=== PATIENT | female | born 1970 | race Caucasian/White ===

== ENCOUNTER 2019-12-17 12:31 | Outpatient (CLI) | payer OTHER, SELFPAY ==
--- NOTE | ~2019-12-17 | XR_ITS ---
XR lumbar spine 2-3V DATE: 12/17/2019 13:19 INDICATION: Low back pain. No injury. TECHNIQUE: AP, lateral, coned lateral lumbosacral views COMPARISON: None FINDINGS: Normal alignment of the lumbar spine. There is mild degenerative spurring of the lumbar sp ine. No fracture or spondylolisthesis. The lumbar pedicles are intact. The sacroiliac joints are intact. IMPRESSION: Mild degenerative spurring Reviewed, dictated and finalized at location B. IMPRESSION: Mild degenerative spurring
== END 2019-12-17 12:32 | disposition home or self-care (01) ==
PROVIDERS: PCP Emergency Medicine
DX: M54.5 Low back pain (principal)
CPT/HCPCS: 72100

== ENCOUNTER 2019-12-31 17:47 | Emergency (ER) | payer OTHER, SELFPAY ==
--- NOTE | ~2019-12-31 | XR_ITS ---
XR ankle LT min 3V 12/31/2019 18:37 INDICATION: Left ankle pain after injury PROCEDURE: 4 views left ankle COMPARISON: No prior studies for comparison. FINDINGS: Fracture, dislocation or subluxation is not identified. There is a degenerative plantar terra caneal enthesophyte. Mild degenerative changes of the ankle. The soft tissues appear within normal li mits. No foreign bodies are identified. IMPRESSION: 1: NO ACUTE BONE OR JOINT ABNORMALITY IDENTIFIED. Reviewed, dictated and finalized at location A.
[2019-12-31 18:01] VITALS: BP 112/87; PULSE 95; RESP 18; TEMP 37.4; O2SAT 97
[2019-12-31 18:06] VITALS: O2SAT 97
[2019-12-31 18:15] VITALS: O2SAT 97
[2019-12-31 18:16] VITALS: BP 114/82; O2SAT 97
[2019-12-31 18:31] VITALS: BP 113/80; O2SAT 95
--- NOTE | 2019-12-31 18:45 | ED.LOWEXIN ---
HPI - Extremity Injury (Lower) General Chief Complaint: Extremity Injury, Lower Stated Complaint: left foot injury Time Seen by Provider: 12/31/19 18:07 Source: patient Mode of arrival: wheelchair Limitations: no limitations History of Present Illness HPI Narrative: This is a 49 year old female that presents to the ER for left ankle injury just prior to arrival. Reports she stepped into her shower and felt a pop in the ankle. Reports swelling and pain since. Reports decreased ROM due to pain. Denies hitting her head, loss of consciousness, other injuries, or numbness. Related Data Allergies Allergy/AdvReac Type Severity Reaction Status Date / Time No Known Allergies Allergy Verified 12/31/19 18:19 Review of Systems Review of Systems: Narrative: CONSTITUTIONAL: Denies fever MUSCULOSKELETAL: Reports joint pain, and myalgia. NEUROLOGIC: Denies numbness All systems reviewed & are unremarkable except as noted in HPI and below PMFSH Past Medical History Medical History (Updated 12/31/19 @ 18:50 by Katiana Castaneda PA-C) History of anxiety History of peripheral neuropathy Social History Social History Gender identity (if verbalized by the patient): Female Exam Narrative: Exam Narrative: GENERAL: Well-appearing, well-nourished, and in no acute distress. HEAD: Normocephalic, atraumatic. EYES: EOMI. EXTREMITIES: Normal range of motion. No edema or obvious deformity. Normal DP pulses. Normal sensation SKIN: Warm, dry, no rash. NEURO: No focal deficits. Alert and oriented x3. PSYCH: Normal mood and affect Course Vital Signs Vital signs: Vital Signs Temperature 99.4 F 12/31/19 18:01 Pulse Rate 95 12/31/19 18:01 Respiratory Rate 18 12/31/19 18:01 Blood Pressure 112/87 12/31/19 18:01 Pulse Oximetry 97 12/31/19 18:01 Temperature 99.4 F 12/31/19 18:01 Pulse Rate 95 12/31/19 18:01 Respiratory Rate 18 12/31/19 18:01 Blood Pressure 113/80 12/31/19 18:31 Pulse Oximetry 95 12/31/19 18:31 MDM - Extremity Injury (Lower) MDM Narrative Medical decision making narrative: Patient presents to the emergency department for left ankle pain after an injury today. Left ankle x-rays without acute changes. Patient was instructed on care of ankle sprain. She is to follow-up with primary care doctor. She is given warnings to return to the ER Imaging Data Radiologist's impression: ITS Impressions Ankle X-Ray 12/31/19 18:38 IMPRESSION: 1: NO ACUTE BONE OR JOINT ABNORMALITY IDENTIFIED. Critical Care Time Critical Care Time Critical Care Time: No Discharge Plan Discharge Clinical Impression: Acute left ankle pain Patient Disposition: Home, Self-Care Condition: Stable Instructions: Ankle Sprain (ED) Additional Instructions: Return to the emergency department if you experience fever, redness and swelling of your leg, or any other symptoms that are concerning to you Wear NANDINI wrap and use crutches. No weight on the affected leg until able to bear weight without pain. Ice and elevate extremity. Over the counter pain medication as needed Follow up with your doctor for further care. Follow-up/Referrals: Colt Rene MD [Primary Care Provider] - 1 Week
== END 2019-12-31 19:08 | disposition home or self-care (01) ==
PROVIDERS: Emergency Provider Emergency Medicine; PCP Emergency Medicine
DX: M25.572 Pain in left ankle and joints of left foot (principal); G62.9 Polyneuropathy, unspecified
CPT/HCPCS: 73610; 99283; A9270

== ENCOUNTER 2020-04-06 21:32 | Inpatient (IN) | payer OTHER, SELFPAY ==
--- NOTE | ~2020-04-06 | XR_ITS ---
EXAMINATION: XR abdomen/kub 1V INDICATION: Right ureteral stone TECHNIQUE: Supine views of the abdomen were obtained on 2 radiographs. COMPARISON: CT from today FINDINGS: A 3 mm density projecting lateral to the right L3 transverse process likely reflects the pr oximal ureteral stone identified on CT. No additional suspicious calcification is identified. The aimee g bases are clear. The bowel gas pattern is normal. IMPRESSION: 1. 3 mm calcification projecting in the expected location of the proximal right ureteral stone seen o n CT. Reviewed, dictated and finalized at location A. IMPRESSION: 1. 3 mm calcification projecting in the expected location of the proximal right ureteral stone seen on CT.
--- NOTE | ~2020-04-06 | XR_ITS ---
EXAMINATION: XR abdomen/kub 1V EXAM DATE: 04/09/2020 09:37 INDICATION: Evaluate for right ureteral stent position. TECHNIQUE: Frontal projection of the upper abdomen, frontal projection lower abdomen/pelvis for inter pretation. Comparison is made to prior examination from 04/06/2020. FINDINGS: Right-sided double-J ureteral stent is with proximal loop projecting over expected locatio n of right renal pelvis and distal loop over the bladder, expected position. There is scattered bowel gas. Nonobstructive bowel gas pattern. No suspicious calcifications identified., There are mild bony degenerative changes. Lung bases unremarkable. IMPRESSION: 1. Right ureteral stent overlying expected position. Reviewed, dictated and finalized at location G.
--- NOTE | ~2020-04-06 | XR_ITS ---
EXAMINATION: XR retrograde pyelo w/stent RT EXAM DATE: 04/07/2020 11:04 INDICATION: Stone extraction. TECHNIQUE: Fluoroscopy used during XR retrograde pyelo w/stent RT performed by Dr. Kaden Redd MD. The DAP for this procedure was 1.2 mGym2. Cine run(s) available for review. FINDINGS: The right ureter was cannulated, injected. Some mobile intraluminal filling defects probab ly gas bubbles. No ureteral stricture. A double-J ureteral stent was placed. Correlate with procedure note. IMPRESSION: Fluoroscopy used during XR retrograde pyelo w/stent RT. Reviewed, dictated and finalized at location A.
--- NOTE | ~2020-04-06 | CT_ITS ---
EXAMINATION: CT abdomen pelvis wo con DATE: 04/06/2020 22:07 INDICATION: Right flank pain TECHNIQUE: Computed tomography (CT) of the abdomen and pelvis was performed without intravenous contr ast. The dose-length product (DLP) was 746.75 mGy-cm. Automated exposure control and iterative recons truction technique were employed. COMPARISON: None FINDINGS: Calcified nodules of the left lower lobe and calcified left hilar nodules are consistent wi th old granulomatous disease. The heart size is normal. The liver is diffusely low in attenuation whe n compared with the spleen, consistent with hepatic steatosis. Punctate calcifications in an otherwis e normal spleen likely represent healed granulomatous disease. The pancreas, gallbladder, and adrenal glands are normal. There is a 3 mm stone of the proximal right ureter which causes mild hydronephros is. No stones are present in the kidneys, the left ureter, or the bladder. No pathologically enlarged abdominal or pelvic lymph nodes are identified. There is no free intraperitoneal gas or evidence of bowel obstruction. There is mild lumbar spondylosis. The appendix is normal. IMPRESSION: 1. 3 mm stone in the proximal right ureter causing mild right hydroureteronephrosis. Consider KUB for treatment planning purposes. Reviewed, dictated and finalized at location A. IMPRESSION: 1. 3 mm stone in the proximal right ureter causing mild right hydroureteronephr osis. Consider KUB for treatment planning purposes.
[2020-04-06 21:34] VITALS: BP 133/79; PULSE 100; RESP 20; TEMP 37.6; O2SAT 100
--- NOTE | 2020-04-06 21:42 | ED.FEVER ---
HPI - Fever General Chief Complaint: Fever Stated Complaint: INSOMNIA, BODY ACHES, FEVER Time Seen by Provider: 04/06/20 21:38 History of Present Illness HPI Narrative: History somewhat limited by poor historian. She reports not feeling well since having hemorrhoid surgery a few days ago. Symptoms include hip pain, back pain, rectal pain, nausea, weakness, fatigue, fever. She is concerned because she ran out of pain medication and thinks she may be haing a kidney stone flare . She reports that she has had many kidney stones in the past. Related Data Home Medications Medication Instructions Recorded Confirmed trazodone 04/06/20 gabapentin 600 mg PO BID 04/07/20 04/07/20 Allergies Allergy/AdvReac Type Severity Reaction Status Date / Time No Known Allergies Allergy Verified 04/06/20 21:46 Review of Systems Review of Systems: All systems reviewed & are unremarkable except as noted in HPI and below Constitutional: Constitutional: Reports fatigue and Reports fever(s) ENT: Denies sore throat Cardiovascular: Cardiovascular: Denies chest pain Respiratory: Respiratory: Reports cough Gastrointestinal: Gastrointestinal: Reports abdominal pain and Reports nausea Genitourinary: Genitourinary: Reports flank pain Musculoskeletal: Musculoskeletal: Reports back pain [facility] Past Medical History Medical History History of anxiety History of peripheral neuropathy Social History Social History Smoking status: Never smoker Alcohol intake: current Drinks per week: 2 Substance use: never Substance use type: does not use Gender identity (if verbalized by the patient): Female Spiritual care concerns: No Exam Const: General: no acute distress and alert Nutritional Appearance: obese Orientation/consciousness: patient oriented x3 HENMT: Head: normal to inspection Neck: Neck: normal visual inspection and no lymphadenopathy Chest: Chest palpation & inspection: no tenderness Resp: Effort & Inspection: normal respiratory effort Auscultation: clear to auscultation bilaterally, no rales, no rhonchi and no wheezes Cardio: Jugular venous distension: no JVD Rate: regular rate Rhythm: regular rhythm Heart sounds: no murmurs GI: Inspection: non-distended GI Palp: Yes Soft to palpation and No Tenderness to palpation present (GI) Skin: General skin exam: normal color Neuro: General: patient oriented x3, moves all extremities and CN's II-XI intact bilaterally Speech: normal speech Extrem: General: no edema Psych: Appearance: well kempt Affect: normal affect Course Vital Signs Vital signs: Vital Signs Temperature 37.6 C H 04/06/20 21:34 Pulse Rate 100 04/06/20 21:34 Respiratory Rate 20 04/06/20 21:34 Blood Pressure 133/79 04/06/20 21:34 Pulse Oximetry 100 04/06/20 21:34 Temperature 38.7 C H 04/07/20 02:02 Pulse Rate 101 H 04/07/20 01:49 Respiratory Rate 20 04/07/20 01:49 Blood Pressure 147/85 H 04/07/20 01:49 Pulse Oximetry 100 04/07/20 01:49 MDM - Fever MDM Narrative Medical decision making narrative: UA consistent with UTI. Small stone with hydro on CT. Case discussed with Dr. Redd. He will likely take her to the OR tomorrow. Medical Records Attestation: I reviewed the patient's medical records. Lab Data Attestation: I reviewed the patient's lab results. Result diagrams: 04/06/20 22:10 04/06/20 22:10 Labs: Lab Results 04/06/20 04/06/20 04/06/20 Range/Units 22:10 22:10 22:40 WBC 13.4 H (4.5-10.0) K/mm3 RBC 4.52 (4.2-5.4) M/mm3 Hgb 14.0 (12.0-15.0) g/dL Hct 41.5 (37.0-47.0) % MCV 91.8 (80-100) fl MCH 31.0 (26-34) pg MCHC 33.7 (32-36) g/dl RDW 13.4 (11.5-14.5) % Plt Count 311 (150-375) k/mm3 MPV 10.0 (7.4-10.4) fl Immature Gran % (Auto) 0.6 H (0-0.
[2020-04-06] MEDS: SODIUM CHLORIDE 0.9% IV 500 ML 999 ML IV CONT (22:11)
[2020-04-06 22:12] VITALS: BP 125/84; PULSE 94; RESP 20; O2SAT 97
[2020-04-06 22:21] LABS: Basophils Absolute Auto 0.1 K/mm3 (0.0-0.1); Basophils Percent Auto 0.6 % (0.2-1.2); Eosinophils Absolute Auto 0.1 K/mm3 (0-0.3); Eosinophils Percent Auto 0.7 % (0-4.4); Hematocrit 41.5 % (37.0-47.0); Immature Granulocyte Absolute 0.08 K/mm3 (0.00-0.031); Immature Granulocyte Percent A 0.6 % (0-0.5); Lymphocytes Absolute Auto 1.85 K/mm3 (0.9-3.2); Lymphocytes Percent Auto 13.8 % (18.3-44.2); Mean Corpuscular HGB Conc 33.7 g/dl (32-36); Mean Corpuscular Volume 91.8 fl (80-100); Monocytes Absolute Auto 0.9 K/mm3 (0.1-0.6); Monocytes Percent Auto 6.9 % (2.6-8.5); Neutrophils Absolute Auto 10.4 K/mm3 (1.3-6.7); Neutrophils Percent Auto 77.4 % (45.5-73.1); Platelet Count Result 311 k/mm3 (150-375); Red Blood Count 4.52 M/mm3 (4.2-5.4); Red Cell Distribution Width 13.4 % (11.5-14.5); White Blood Count 13.4 K/mm3 (4.5-10.0)
[2020-04-06 22:29] VITALS: BP 118/74; PULSE 88; RESP 20; O2SAT 100
[2020-04-06 22:31] LABS: Alanine Aminotransferase 20 U/L (4-35); Albumin Level 4.2 g/dL (3.5-5.1); Alkaline Phosphatase 110 U/L (38-126); Anion Gap 11.5 mmol/L (7-16); Aspartate Amino Transferase 21 U/L (14-36); Bilirubin,Total 0.8 mg/dL (0.2-1.3); Blood Urea Nitrogen 17 mg/dL (7-17); Carbon Dioxide 23 mmol/L (22-30); Chloride 109 mmol/L (98-107); Estimated CRCL calculation 67 ml/min; Estimated Glomerular Filt Rate 59; Glucose 123 mg/dL (65-105); Lipase 281 U/L (23-300); Potassium 3.5 mmol/L (3.4-5.0); Sodium 140 mmol/L (137-145)
[2020-04-06] MEDS: MORPHINE SULFATE 2 MG/ML INJ IV PUSH (22:54)
[2020-04-06] MEDS: SODIUM CHLORIDE 0.9% IV 1,000 ML 999 ML IV CONT (22:54)
[2020-04-06 22:58] LABS: Add Urine Microscopic? YES; Appearance Urine Cloudy (Clear); Bacteria Urine Trace /hpf; Bilirubin Urine Negative (Negative); Blood Urine 2+ (Negative); Color Urine Yellow (Yellow); Glucose Urine UA Negative (Negative); Ketones Urine Negative (Negative); Leukocyte Esterase Ur 2+ LEU/UL (Negative); Mucus Urine Few /lpf; Nitrate Urine Positive (Negative); Protein Urine 2+ mg/dL (Negative); Specific Grav Ur 1.023 (1.001-1.035); Squamous Epithelial Cell Urine Moderate /hpf (Few); Urobilinogen Urine Negative mg/dL (<2.0); WBC Urine 51-75 /hpf
[2020-04-07] VITALS (15 sets, daily range): BP systolic 93–147; BP diastolic 68–97; PULSE 72–105; RESP 12–21; TEMP 36.7–38.9; O2SAT 92–100; BMI 30.8
[2020-04-07] MEDS: MORPHINE SULFATE 4 MG/ML INJ IV PUSH ×4 (00:32→20:55)
--- NOTE | 2020-04-07 01:48 | ADMGEN ---
This patient, Lety Doshi, was admitted to Medical Room 343-01. Patient/family oriented to hospital policies and general routines including ID bracelet, bed and alarms, visiting hours, pain management, procedures, bathroom and other care routines, personal items, smoking policy, room service/diet, and visiting hours. Valuables list has been completed. Information on how to activate the Rapid Response Team has been discussed. Patient/Family are encouraged to report perceived risks to care and to ask questions if they do not understand what they are told or what they should do.
[2020-04-07] MEDS: LACTATED RINGERS 1,000 ML 125 ML IV CONT ×2 (02:22→13:58)
--- NOTE | 2020-04-07 02:32 | PM.IMHP ---
H&P: HPI History of Present Illness Chief complaint: Kidney stone and UTI Narrative: This is an obese female with known history of multiple recurring renal stones who presented to the hospital tonight with complaints of dysuria and right flank pain for the past few days. Associated symptoms includes fever and chills but no gross hematuria. The patient is known to have recently had hemorrhoid surgery about 2 weeks ago which she states is healing well. She denies any significant suprapubic pain tonight. The patient was found to be septic tonight in the ER with fever, tachycardia, and leukocytosis. CT abd/pelvis was obtained which demonstrated a 3 mm stone in the proximal right ureter causing mild right hydroureteronephrosis. ER provider has consulted Urology. The patient has been treated with antibiotics in the ER and we have been asked to admit her for further care. No other complaints. Review of Systems Review of Systems: All systems reviewed & are unremarkable except as noted in HPI and below PMFSH Past Medical History Medical History History of anxiety History of peripheral neuropathy Surgical History Surgical History (Updated 04/07/20 @ 05:18 by Werner Prajapati MD) History of ureter stent Social History Social History Smoking status: Never smoker Alcohol intake: current Drinks per week: 2 Substance use: never Substance use type: does not use Gender identity (if verbalized by the patient): Female Spiritual care concerns: No Comments Family medical history is reviewed and noncontributory. Meds Home Medications and Allergies Home Medications Medication Instructions Recorded Confirmed Type trazodone 150 mg PO HS 04/06/20 04/07/20 History gabapentin 600 mg PO BID 04/07/20 04/07/20 History Allergies Allergy/AdvReac Type Severity Reaction Status Date / Time No Known Allergies Allergy Verified 04/06/20 21:46 Vital Signs Vital Signs - 24 hr 04/06/20 21:34 04/06/20 22:12 04/06/20 22:29 Temperature 37.6 C H Pulse Rate 100 94 88 Respiratory Rate 20 20 20 Blood Pressure 133/79 125/84 118/74 Pulse Oximetry 100 97 100 04/07/20 01:20 04/07/20 01:49 04/07/20 02:02 Temperature 38.7 C H Pulse Rate 101 H Respiratory Rate 20 Blood Pressure 139/97 H 147/85 H Pulse Oximetry 100 Exam Const: General: cooperative, alert, awake, ill appearing, tired appearing and uncomfortable Nutritional Appearance: obese Orientation/consciousness: patient oriented x3 HENMT: Head: normal to inspection General nose exam: Normal external nose present Face and sinus: normal facial exam Mouth: Yes Normal oral and palatal mucosa present and Yes oropharynx normal Eyes: Pupils: Equal, round and reactive pupils present EOM: EOMs intact bilaterally Neck: Neck: supple and no JVD Thyroid: thyroid normal Lymphatic: lymphadenopathy not noted Resp: Effort & Inspection: normal respiratory effort Auscultation: clear to auscultation bilaterally Cardio: Rate: regular rate Rhythm: regular rhythm Heart sounds: no murmurs GI: Inspection: normal to inspection Auscultation: normal bowel sounds Back/Spine/Pelvis: Back: CVA tenderness (Right sided++ ) Skin: General skin exam: normal color and no rashes or lesions noted Neuro: General: patient oriented x3 Cranial nerves: Yes CN's II-XII intact bilaterally and Yes Equal, round and reactive pupils present Speech: normal speech Motor exam (neuro): 5/5 motor strength present throughout Sensory Exam: normal sensation Extrem: General: normal to inspection and no edema Psych: Mental Status: mental status grossly normal Affect: normal affect H&P: Results Labs Labs: Short CBC 04/06/20 Range/Units 22:10 WBC 13.4 H (4.5-10.0) K/mm3 Hgb 14.0 (12.0-15.0) g/dL Hct 41.5 (37.0-47.0) % Plt Count 311 (150-375) k/mm3
[2020-04-07 06:09] LABS: Basophils Absolute Auto 0.1 K/mm3 (0.0-0.1); Basophils Percent Auto 0.6 % (0.2-1.2); Eosinophils Percent Auto 0.2 % (0-4.4); Hematocrit 38.8 % (37.0-47.0); Hemoglobin 12.9 g/dL (12.0-15.0); Immature Granulocyte Absolute 0.07 K/mm3 (0.00-0.031); Immature Granulocyte Percent A 0.5 % (0-0.5); Lymphocytes Absolute Auto 1.47 K/mm3 (0.9-3.2); Lymphocytes Percent Auto 11.4 % (18.3-44.2); Mean Corpuscular HGB Conc 33.2 g/dl (32-36); Mean Corpuscular Hemoglobin 30.8 pg (26-34); Mean Corpuscular Volume 92.6 fl (80-100); Mean Platelet Volume 10.1 fl (7.4-10.4); Monocytes Absolute Auto 0.7 K/mm3 (0.1-0.6); Monocytes Percent Auto 5.8 % (2.6-8.5); Neutrophils Absolute Auto 10.5 K/mm3 (1.3-6.7); Neutrophils Percent Auto 81.5 % (45.5-73.1); Platelet Count Result 268 k/mm3 (150-375); Red Blood Count 4.19 M/mm3 (4.2-5.4); Red Cell Distribution Width 13.8 % (11.5-14.5); White Blood Count 12.9 K/mm3 (4.5-10.0)
[2020-04-07 06:25] LABS: Anion Gap 9.6 mmol/L (7-16); Blood Urea Nitrogen 13 mg/dL (7-17); Calcium 8.3 mg/dL (8.4-10.2); Carbon Dioxide 22 mmol/L (22-30); Chloride 110 mmol/L (98-107); Estimated CRCL calculation 65 ml/min; Estimated Glomerular Filt Rate 59; Glucose 135 mg/dL (65-105); Potassium 3.6 mmol/L (3.4-5.0); Sodium 138 mmol/L (137-145)
--- NOTE | 2020-04-07 07:32 | WPDURCON ---
Assessment and Plan Assessment and plan (1) Complicated UTI (urinary tract infection): Code(s): N39.0 - Urinary tract infection, site not specified Status: Acute (2) Ureteral stone with hydronephrosis: Code(s): N13.2 - Hydronephrosis with renal and ureteral calculous obstruction Status: Acute Assessment and Plan: Agree with ceftriaxone pending urine culture results Will planned cystoscopy with right ureteral stone extraction today. Urology Consult Note HPI Date Seen: 04/07/20 Requesting Physician: Elenita Santamaria PA-C Primary Care Provider: UNKNOWN,DOCTOR Consult Narrative Narrative: Lety Doshi is a 49 year old female with a history of multiple recurrence at renal and ureteral calculi, none of which have been cared for in [facility] or through our practice. She does report some several prior procedures including both endoscopic ureteral stone extractions and ESWL. She presents to the ER with persistent dysuria over the past several days and rather onset right flank pain. Imaging demonstrates a 3 mm partially obstructing right proximal ureteral stone. She denies fevers chills or gross hematuria. Review of Systems Cardiovascular: Cardiovascular: Denies chest pain, Denies lightheadedness, Denies palpitations and Denies dyspnea Respiratory: Respiratory: Denies dyspnea Gastrointestinal: Gastrointestinal: Denies diarrhea, Denies nausea and Denies vomiting Genitourinary: Genitourinary: Denies hematuria and Denies dysuria Endocrine: Endocrine: Denies palpitations PMFSH Past Medical History Medical History History of anxiety History of peripheral neuropathy Surgical History Surgical History History of ureter stent Social History Social History Smoking status: Never smoker Alcohol intake: current Drinks per week: 2 Substance use: never Substance use type: does not use Gender identity (if verbalized by the patient): Female Spiritual care concerns: No Meds Home Medications and Allergies Home Medications Medication Instructions Recorded Confirmed Type trazodone 150 mg PO HS 04/06/20 04/07/20 History gabapentin 600 mg PO BID 04/07/20 04/07/20 History Allergies Allergy/AdvReac Type Severity Reaction Status Date / Time No Known Allergies Allergy Verified 04/06/20 21:46 Vital Signs Vital Signs - 24 hr 04/06/20 21:34 04/06/20 22:12 04/06/20 22:29 Temperature 99.7 F H Pulse Rate 100 94 88 Respiratory Rate 20 20 20 Blood Pressure 133/79 125/84 118/74 Pulse Oximetry 100 97 100 04/07/20 01:20 04/07/20 01:49 04/07/20 02:02 Temperature 101.6 F H Pulse Rate 101 H Respiratory Rate 20 Blood Pressure 139/97 H 147/85 H Pulse Oximetry 100 04/07/20 05:15 Temperature 99.4 F Pulse Rate 105 H Respiratory Rate 19 Blood Pressure 109/77 Pulse Oximetry 97 Exam Const: General: no acute distress Resp: Effort & Inspection: normal respiratory effort GI: Inspection: non-distended GI Palp: No abdominal tenderness and No Guarding due to palpation present (GI) Auscultation: normal bowel sounds Results Labs CBC & Chem 7: 04/07/20 05:34 04/07/20 05:34 Labs: Short CBC 04/06/20 04/07/20 Range/Units 22:10 05:34 WBC 13.4 H 12.9 H (4.5-10.0) K/mm3 Hgb 14.0 12.9 (12.0-15.0) g/dL Hct 41.5 38.8 (37.0-47.0) % Plt Count 311 268 (150-375) k/mm3 BMP 04/06/20 04/07/20 22:10 05:34 Sodium 140 138 Potassium 3.5 3.6 Chloride 109 H 110 H Carbon Dioxide 23 22 BUN 17 13 Creatinine 1.00 1.00 Glucose 123 H 135 H Calcium 9.0 8.3 L Liver Function 04/06/20 Range/Units 22:10 Total Bilirubin 0.8 (0.2-1.3) mg/dL AST 21 (14-36) U/L ALT 20 (4-35) U/L Alkaline Phosphatase 110
[2020-04-07 08:29] LABS: Beta HCG Quantitative 3.16 mIU/ML
[2020-04-07] MEDS: LACTATED RINGERS 1,000 ML 30 ML IV CONT (09:45)
--- NOTE | 2020-04-07 10:24 | WPDANESEPPF ---
Anes - Initial Pre Proc Eval Procedure: Operation Date: 04/07/20 11:00 Proposed Procedures p CYSTOSCOPY,RIGHT URETEROSCOPY,STONE EXTRACTION - Kaden Redd MD Date/Time: 04/07/20 10:24 Surgeon: Elenita Santamaria PA-C Pre Op Diagnosis: Kidney stone and UTI Patient Data Age: 49 Gender: F Height: 5 ft 5 in Weight: 84 kg Last Vital Signs Temp 100.8 F H 04/07/20 09:52 Pulse 102 H 04/07/20 09:52 Resp 18 04/07/20 09:52 BP 134/78 04/07/20 09:52 Pulse Ox 99 04/07/20 09:52 Allergies Allergy/AdvReac Type Severity Reaction Status Date / Time No Known Allergies Allergy Verified 04/07/20 09:51 Home Medications Medication Instructions Recorded Confirmed Type trazodone 150 mg PO HS 04/06/20 04/07/20 History gabapentin 600 mg PO BID 04/07/20 04/07/20 History Laboratory Tests 04/06/20 04/06/20 04/06/20 22:10 22:10 22:40 WBC 13.4 K/mm3 H K/mm3 (4.5-10.0) RBC 4.52 M/mm3 M/mm3 (4.2-5.4) Hgb 14.0 g/dL g/dL (12.0-15.0) Hct 41.5 % % (37.0-47.0) MCV 91.8 fl fl (80-100) MCH 31.0 pg pg (26-34) MCHC 33.7 g/dl g/dl (32-36) RDW 13.4 % % (11.5-14.5) Plt Count 311 k/mm3 k/mm3 (150-375) MPV 10.0 fl fl (7.4-10.4) Immature Gran % (Auto) 0.6 % H % (0-0.5) Neut % (Auto) 77.4 % H % (45.5-73.1) Lymph % (Auto) 13.8 % L % (18.3-44.2) [place] % (Auto) 6.9 % % (2.6-8.5) Eos % (Auto) 0.7 % % (0-4.4) Baso % (Auto) 0.6 % % (0.2-1.2) Lymph # (Auto) 1.85 K/mm3 K/mm3 (0.9-3.2) [place] # (Auto) 0.9 K/mm3 H K/mm3 (0.1-0.6) Eos # (Auto) 0.1 K/mm3 K/mm3 (0-0.3) Baso # (Auto) 0.1 K/mm3 K/mm3 (0.0-0.1) Abs Immat Gran (auto) 0.08 K/mm3 H K/mm3 (0.00-0.031) Absolute Neuts (auto) 10.4 K/mm3 H K/mm3 (1.3-6.7) Absolute Nucleated RBC 0.0 K/mm3 K/mm3 (0.0-0.012) Nucleated RBC % 0.0 % % (0.0-0.2) Sodium 140 mmol/L mmol/L (137-145) Potassium 3.5 mmol/L mmol/L (3.4-5.0) Chloride 109 mmol/L H mmol/L (98-107) Carbon Dioxide 23 mmol/L mmol/L (22-30) Anion Gap 11.5 mmol/L mmol/L (7-16) BUN 17 mg/dL mg/dL (7-17) Creatinine 1.00 mg/dL mg/dL (0.7-1.0) Estim Creat Clear Calc 67 ml/min ml/min Estimated GFR 59 (59 - ) Glucose 123 mg/dL H mg/dL (65-105) Calcium 9.0 mg/dL mg/dL (8.4-10.2) Total Bilirubin 0.8 mg/dL mg/dL (0.2-1.3) AST 21 U/L U/L (14-36) ALT 20 U/L U/L (4-35) Alkaline Phosphatase 110 U/L U/L (38-126) Total Protein 8.0 g/dL g/dL (6.3-8.2) Albumin 4.2 g/dL g/dL (3.5-5.1) Lipase 281 U/L U/L (23-300) Beta HCG, Quant Urine Color Yellow (Yellow) Urine Appearance Cloudy H (Clear) Urine pH 5.0 (5.0-9.0) Ur Specific [place] 1.023 (1.001-1.035) Urine Protein 2+ mg/dL H mg/dL (Negative) Urine Glucose (UA) Negative mg/dL mg/dL (Negative) Urine Ketones Negative mg/dL mg/dL (Negative) Ur Blood (Man) 2+ H (Negative) Urine Nitrate Positive H (Negative) Urine Bilirubin Negative (Negative) Urine Urobilinogen Negative mg/dL mg/dL (<2.0) Leukocyte Esterase Rfl 2+ TAMIKA/UL H TAMIKA/UL (Negative) Urine RBC 6-10 /hpf H /hpf (0-2) Urine WBC 51-75 /hpf H /hpf Ur Squamous Epith Cells Moderate /hpf H /hpf (Few) Urine Bacteria Trace /hpf /hpf Urine Mucus Few /lpf H /lpf 04/07/20 04/07/20 04/07/20 05:34 05:34 05:34 WBC 12.9 K/mm3 H K/mm3 (4.5-10.0) RBC 4.19 M/mm3 L M/mm3 (4.2-5.4) Hgb 12.9 g/dL g/dL (12.0-15.0) Hct 38.
[2020-04-07] MEDS: KETOROLAC 30 MG/ML VIAL (*BKC) IV PUSH (10:51)
[2020-04-07] MEDS: LIDOCAINE HCL 2% GEL UROJET 10 ML PKG MUCOUS MEM (10:58)
--- NOTE | 2020-04-07 11:09 | P.OP_ITS ---
Procedure Note - Detailed Date of procedure: 04/07/20 Pre-op diagnosis: Kidney stone and UTI Post-op diagnosis: same Procedure performed: 1. Cystoscopy, right ureteroscopy with stone extraction. 2. Right retrograde pyelogram. 3. Right ureteral stent placement. Description of procedure: The patient was brought to the operative suite where she is prepped and draped in a routine sterile fashion while in the dorsal lithotomy position after the uneventful induction of a general LMA anesthetic. A 19F rigid cystoscope was placed in the bladder. The patient had no evidence of urethral stricture or bladder neck contracture. The bladder mucosa was endoscopically normal without hyperemia or neoplasm. There was a single, orthotopic ureteral orifice bilaterally. A 0.035 glidewire was advanced into the right renal pelvis under fluoroscopy. The distal ureter was dilated with an 8F/10F ureteral dilator. Ureteroscopy was undertaken with a short tapered semi- rigid ureteroscope and I was able to identify the proximal ureeteral stone and extract it using a 1.9F Escape, disposable stone basket. Due to the extent of this manipulation and the possible presence of an ongoing UTI I did place a 4.8F double-J ureteral stent. The proximal coil of the stent was confirmed to be in the renal pelvis and the distal coil in the bladder. The patient's bladder was emptied and she was taken to the recovery room having tolerated this procedure well. Anesthesia: GLMA Surgeon: Kaden Redd MD General Warehouse Associate: None Estimated blood loss (mL): 0 Drains: Yes (4.8F right ureteral stent) Packing: No Pathology: yes Complications: No immediate complications Condition: stable Disposition: PACU
--- NOTE | 2020-04-07 16:24 | PM.IMPN ---
Progress Note: A&P Assessment and Plan (1) Complicated UTI (urinary tract infection): Code(s): N39.0 - Urinary tract infection, site not specified Status: Acute Assessment and Plan: ------ urine culture still pending but UA suspicious for UTI. Will continue ceftriaxone. Patient has been febrile but no blood cultures were drawn. Although she has already had 1 dose of antibiotics, we will redraw this. (2) Sepsis: Qualifiers: Sepsis type: sepsis due to unspecified organism Sepsis acute organ dysfunction status: without acute organ dysfunction Qualified Code(s): A41.9 - Sepsis, unspecified organism Code(s): A41.9 - Sepsis, unspecified organism Status: Acute Assessment and Plan: ------ Patient had leukocytosis and tachycardia on admission. No blood cultures were drawn as stated above. Will continue ceftriaxone and await urinary cultures. Source appears to be urinary. (3) Ureteral stone with hydronephrosis: Code(s): N13.2 - Hydronephrosis with renal and ureteral calculous obstruction Status: Acute Assessment and Plan: ----- Patient had a stone extraction today. Will monitor overnight and see how she does. (4) Leukocytosis: Qualifiers: Leukocytosis type: unspecified Qualified Code(s): D72.829 - Elevated white blood cell count, unspecified Code(s): D72.829 - Elevated white blood cell count, unspecified Status: Acute Assessment and Plan: -----Secondary to UTI. Monitor CBCd. Time Spent With Patient Time with patient: 25 - 35 minutes Subjective Date/time seen: 04/07/20 16:24 Interval history: Pt is a 49-year-old female here for kidney stone and UTI. Patient was seen today and states she is feeling much better. She was confused last night but overall doing better. She has been eating and drinking and urinating without issue. She does have a little blood after her procedure but nothing significant. She still having flank pain. She denies chest pain, shortness of breath, leg swelling, nausea or vomiting. Review of Systems Review of Systems: All systems reviewed & are unremarkable except as noted in HPI and below Exam Narrative: Exam Narrative: General: Well developed well nourished patient in NAD HEENT: normocephalic, poor dentition Neck: supple Neuro: Alert and oriented x4 CV:RRR Resp:CTA Abd: Soft, non distended. No pain to palpation. Positive bowel sounds. CVA tenderness bilaterally Extremities: No swelling, erythema, or pain to palpation. Objective Data Vital Signs Vital Signs: Vital Signs - 24 hr 04/06/20 21:34 04/06/20 22:12 04/06/20 22:29 Temperature 99.7 F H Pulse Rate 100 94 88 Respiratory Rate 20 20 20 Blood Pressure 133/79 125/84 118/74 Pulse Oximetry 100 97 100 04/07/20 01:20 04/07/20 01:49 04/07/20 02:02 Temperature 101.6 F H Pulse Rate 101 H Respiratory Rate 20 Blood Pressure 139/97 H 147/85 H Pulse Oximetry 100 04/07/20 05:15 04/07/20 08:35 04/07/20 09:52 Temperature 99.4 F 98.6 F 100.8 F H Pulse Rate 105 H 72 102 H Respiratory Rate 19 16 18 Blood Pressure 109/77 142/68 H 134/78 Pulse Oximetry 97 97 99 04/07/20 11:06 04/07/20 11:20 04/07/20 11:35 Temperature 102.0 F H Pulse Rate 101 H 104 H 98 Respiratory Rate 18 21 H 18 Blood Pressure 125/87 126/84 136/91 H Pulse Oximetry 98 99 99 04/07/20 11:50 04/07/20 12:05 04/07/20 12:20 Temperature 99.3 F Pulse Rate 96 87 76 Respiratory Rate 18 12 14 Blood Pressure 135/92 H 120/77 93/72 L Pulse Oximetry 93 92 93 Intake/Output Intake/Output: Intake & Output 04/04/20 04/05/20 04/06/20 04/07/20 23:59 23:59 23:59 23:59 Intake Total 1500 1500 Output Total 400 Balance 1500 1100 Meds/Results Medications: Active Medications Generic Name Dose Route Start Last Admin Trade Name Freq PRN Reason Stop Dose Admin Lactated Ringer's 1,000 mls @ 125 mls/hr 04/07/20 00:
[2020-04-07] MEDS: LACTULOSE 20 GM/30 ML UDC 10 GM PO (17:26)
[2020-04-07] MEDS: LORATADINE 10 MG TABLET PO (17:28)
[2020-04-07] MEDS: hydrOXYzine HCL 25 MG TABLET PO (17:28)
[2020-04-07] MEDS: DICYCLOMINE HCL 10 MG CAPSULE 20 MG PO (17:29)
[2020-04-07] MEDS: buPROPion HCL XL (24 HR) 150 MG TABCR PO (21:02)
[2020-04-07] MEDS: traZODone HCL 50 MG TABLET 150 MG PO (21:06)
[2020-04-07] MEDS: GABAPENTIN 300 MG CAPSULE 600 MG PO (21:13)
[2020-04-08] MEDS: MORPHINE SULFATE 4 MG/ML INJ IV PUSH ×4 (05:21→22:25)
[2020-04-08 05:52] VITALS: BP 139/87; PULSE 64; RESP 15; TEMP 36.1; O2SAT 100
[2020-04-08 06:25] LABS: Hematocrit 37.7 % (37.0-47.0); Hemoglobin 12.5 g/dL (12.0-15.0); Mean Corpuscular HGB Conc 33.2 g/dl (32-36); Mean Corpuscular Hemoglobin 30.7 pg (26-34); Mean Corpuscular Volume 92.6 fl (80-100); Mean Platelet Volume 10.2 fl (7.4-10.4); Platelet Count Result 236 k/mm3 (150-375); Red Blood Count 4.07 M/mm3 (4.2-5.4); Red Cell Distribution Width 13.7 % (11.5-14.5)
[2020-04-08] MEDS: LACTULOSE 20 GM/30 ML UDC 10 GM PO ×2 (06:44→16:32)
[2020-04-08 06:46] LABS: Alanine Aminotransferase 17 U/L (4-35); Albumin Level 3.6 g/dL (3.5-5.1); Alkaline Phosphatase 85 U/L (38-126); Anion Gap 9.4 mmol/L (7-16); Aspartate Amino Transferase 18 U/L (14-36); Bilirubin,Total 0.4 mg/dL (0.2-1.3); Blood Urea Nitrogen 18 mg/dL (7-17); Carbon Dioxide 25 mmol/L (22-30); Chloride 110 mmol/L (98-107); Estimated CRCL calculation 80 ml/min; Estimated Glomerular Filt Rate > 60; Glucose 124 mg/dL (65-105); Magnesium 2.3 mg/dL (1.6-2.3); Potassium 4.4 mmol/L (3.4-5.0); Sodium 140 mmol/L (137-145)
--- NOTE | 2020-04-08 07:45 | WPDUROPN2 ---
Progress Note: A&P Assessment and Plan (1) Complicated UTI (urinary tract infection): Code(s): N39.0 - Urinary tract infection, site not specified Status: Acute (2) Ureteral stone with hydronephrosis: Code(s): N13.2 - Hydronephrosis with renal and ureteral calculous obstruction Status: Acute Assessment and Plan: Culture-directed abx. when completed. Needs stent out in 7-10 days. No other intervention from our standpoint. Subjective Subjective Date/Time Seen: 04/08/20 07:45 Multiple somatic complaints - nothing seems to be related to stone extraction/stent placement yesterday. Urine culture: GNR / Blood culture: NG to date Review of Systems Cardiovascular: Cardiovascular: Denies chest pain, Denies lightheadedness, Denies palpitations and Denies dyspnea Respiratory: Respiratory: Denies dyspnea Gastrointestinal: Gastrointestinal: Denies diarrhea, Denies nausea and Denies vomiting Genitourinary: Genitourinary: Denies hematuria and Denies dysuria Endocrine: Endocrine: Denies palpitations Exam Const: General: no acute distress Resp: Effort & Inspection: normal respiratory effort GI: Inspection: non-distended GI Palp: No abdominal tenderness and No Guarding due to palpation present (GI) Auscultation: normal bowel sounds Objective Data Vital Signs Vital Signs: Vital Signs - 24 hr 04/07/20 08:35 04/07/20 09:52 04/07/20 11:06 Temperature 98.6 F 100.8 F H 102.0 F H Pulse Rate 72 102 H 101 H Respiratory Rate 16 18 18 Blood Pressure 142/68 H 134/78 125/87 Pulse Oximetry 97 99 98 04/07/20 11:20 04/07/20 11:35 04/07/20 11:50 Temperature 99.3 F Pulse Rate 104 H 98 96 Respiratory Rate 21 H 18 18 Blood Pressure 126/84 136/91 H 135/92 H Pulse Oximetry 99 99 93 04/07/20 12:05 04/07/20 12:20 04/07/20 16:35 Temperature 98.2 F Pulse Rate 87 76 81 Respiratory Rate 12 14 14 Blood Pressure 120/77 93/72 L 130/87 Pulse Oximetry 92 93 98 04/07/20 19:46 04/07/20 20:00 04/08/20 05:52 Temperature 98.1 F 97 F L Pulse Rate 72 72 64 Respiratory Rate 16 16 15 Blood Pressure 128/70 139/87 Pulse Oximetry 100 100 100 Intake/Output Intake/Output: Intake & Output 04/05/20 04/06/20 04/07/20 04/08/20 23:59 23:59 23:59 23:59 Intake Total 1500 2330 300 Output Total 1000 1000 Balance 1500 1330 -700 Meds/Results Medications: Active Medications Generic Name Dose Route Start Last Admin Trade Name Freq PRN Reason Stop Dose Admin Acetaminophen 650 mg 04/07/20 16:28 Tylenol Tablet PO Q4H PRN pain 1-3 Hydrocodone Bitart/Acetaminophen 1 tab 04/07/20 16:28 04/08/20 01:00 [place] 5-325 Mg PO 1 tab Q6H PRN Administration Pain Rated 4-6 Bupropion HCl 150 mg 04/07/20 21:00 04/07/20 21:02 Wellbutrin Xl (24 Hr) PO 150 mg HS EDDIE Administration Dicyclomine HCl 20 mg 04/07/20 17:00 04/07/20 17:29 Bentyl Capsule PO 20 mg TID EDDIE Administration Gabapentin 600 mg 04/08/20 09:00 Neurontin PO BID EDDIE Hydroxyzine HCl 25 mg 04/07/20 17:00 04/07/20 17:28 Atarax Tablet PO 25 mg TID EDDIE Administration Ceftriaxone Sodium/Dextrose 1 gm in 50 mls @ 100 mls/hr 04/07/20 21:00 04/07/20 22:00 Rocephin 1 Gm/D5w 50 Ml IVPB Infused Q24H EDDIE Infusion Lactulose 10 gm 04/07/20 17:00 04/08/20 06:44 Lactulose PO 05/07/20 17:01 10 gm BID EDDIE Administration Loratadine 10 mg 04/07/20 09:00 04/07/20 17:28 Claritin PO 10 mg DAILY EDDIE Administration Morphine Sulfate 4 mg 04/07/20 00:49 04/08/20 05:21 Morphine Sulfate Inj IV PUSH 4 mg Q2H PRN Administration Pain Rated 7-10 Trazodone HCl 150 mg 04/07/20 18:32 04/07/20 21:06 Desyrel PO 150 mg HS PRN Administration Insomnia Radiology Results: ITS Impressions Abdomen/Pelvis CT 07/22/20 22:10 IMPRESSION: 1. 3 mm stone in the proximal right ureter causing mild right hydroureteronephrosis. Consi
[2020-04-08] MEDS: LORATADINE 10 MG TABLET PO (08:04)
[2020-04-08] MEDS: hydrOXYzine HCL 25 MG TABLET PO ×3 (08:04→16:32)
[2020-04-08] MEDS: GABAPENTIN 300 MG CAPSULE 600 MG PO ×2 (08:05→16:32)
[2020-04-08] MEDS: DICYCLOMINE HCL 10 MG CAPSULE 20 MG PO ×3 (08:05→16:31)
--- NOTE | 2020-04-08 12:49 | PM.IMPN ---
Progress Note: A&P Assessment and Plan (1) Complicated UTI (urinary tract infection): Code(s): N39.0 - Urinary tract infection, site not specified Status: Acute Assessment and Plan: ------UA and culture + for kelbsiela and sensitive to ceftriaxone. Pt is still in a lot of pain and does not think she can discharge. She has been afebrile for 24 hours so far. Blood cultures pending. (2) Sepsis: Qualifiers: Sepsis type: sepsis due to unspecified organism Sepsis acute organ dysfunction status: without acute organ dysfunction Qualified Code(s): A41.9 - Sepsis, unspecified organism Code(s): A41.9 - Sepsis, unspecified organism Status: Acute Assessment and Plan: ------ Patient had leukocytosis and tachycardia on admission. No blood cultures were drawn as stated above. Will continue ceftriaxone and await urinary cultures. Source appears to be urinary. (3) Ureteral stone with hydronephrosis: Code(s): N13.2 - Hydronephrosis with renal and ureteral calculous obstruction Status: Acute Assessment and Plan: ----- stone extracted and stent placed. (4) Leukocytosis: Qualifiers: Leukocytosis type: unspecified Qualified Code(s): D72.829 - Elevated white blood cell count, unspecified Code(s): D72.829 - Elevated white blood cell count, unspecified Status: Acute Assessment and Plan: -----resolved. Secondary to UTI. Monitor CBCd. Additional Plan Subjective Date/time seen: 04/08/20 12:49 Interval history: Pt is a 49-year-old female here for kidney stone and UTI. Patient was seen today and is still having uncontrolled pain. She says the pain is in her right flank and is constant. She is having mild burning with urination. She does not think she can go home because of this pain. Her pain medication has been increased and this is helped some. She does not have much of an appetitie and she doesn't know why. She also mentions she is going on vacation and won't be back until the . No CP or SOB. Exam Narrative: Exam Narrative: General: Well developed well nourished patient in NAD HEENT: normocephalic, edentulous on the top teeth Neck: supple Neuro: Alert and oriented x4 CV:RRR Resp:CTA Abd: Soft, non distended. pain to palpation to the RLQ. Positive bowel sounds. No CVA tenderness Extremities: No swelling, erythema, or pain to palpation. Objective Data Vital Signs Vital Signs: Vital Signs - 24 hr 04/07/20 16:35 04/07/20 19:46 04/07/20 20:00 Temperature 98.2 F 98.1 F Pulse Rate 81 72 72 Respiratory Rate 14 16 16 Blood Pressure 130/87 128/70 Pulse Oximetry 98 100 100 04/08/20 05:52 Temperature 97 F L Pulse Rate 64 Respiratory Rate 15 Blood Pressure 139/87 Pulse Oximetry 100 Intake/Output Intake/Output: Intake & Output 04/05/20 04/06/20 04/07/20 04/08/20 23:59 23:59 23:59 23:59 Intake Total 1500 2330 780 Output Total 1000 1000 Balance 1500 1330 -220 Meds/Results Medications: Active Medications Generic Name Dose Route Start Last Admin Trade Name Freq PRN Reason Stop Dose Admin Acetaminophen 650 mg 04/07/20 16:28 Tylenol Tablet PO Q4H PRN pain 1-3 Hydrocodone Bitart/Acetaminophen 1 tab 04/08/20 08:08 04/08/20 09:33 [place] 7.5-325 Mg PO 1 tab Q6H PRN Administration Pain Rated 4-6 Bupropion HCl 150 mg 04/07/20 21:00 04/07/20 21:02 Wellbutrin Xl (24 Hr) PO 150 mg HS EDDIE Administration Dicyclomine HCl 20 mg 04/07/20 17:00 04/08/20 08:05 Bentyl Capsule PO 20 mg TID EDDIE Administration Gabapentin 600 mg 04/08/20 09:00 04/08/20 08:05 Neurontin PO 600 mg BID EDDIE Administration Hydroxyzine HCl 25 mg 04/07/20 17:00 04/08/20 08:04 Atarax Tablet PO 25 mg TID EDDIE Administration Ceftriaxone Sodium/Dextrose 1 gm in 50 mls @ 100 mls/hr 04/07/20 21:00 04/07/20 22:00 Rocephin 1 Gm/D5w 50 Ml IVPB In
--- NOTE | 2020-04-08 19:04 | WPDANESPN ---
Anes - Prog Note Post-Op Date/Time: 04/08/20 19:04 Cardiovascular status: normal Respiratory status: normal Airway patency: baseline Mental status: baseline Post-Op hydration status: normal Vital Signs: Last Vital Signs Temp 97 F L 04/08/20 05:52 Pulse 64 04/08/20 05:52 Resp 15 04/08/20 05:52 BP 139/87 04/08/20 05:52 Pulse Ox 100 04/08/20 05:52 I/O: Intake & Output 04/08/20 04/08/20 04/08/20 07:59 15:59 23:59 Intake Total 300 840 910 Output Total 1000 375 Balance -700 840 535 Laboratory Tests 04/08/20 06:02 04/08/20 06:02 04/08/20 04/08/20 06:02 06:02 WBC 10.0 RBC 4.07 L Hgb 12.5 Hct 37.7 MCV 92.6 MCH 30.7 MCHC 33.2 RDW 13.7 Plt Count 236 MPV 10.2 Sodium 140 Potassium 4.4 Chloride 110 H Carbon Dioxide 25 Anion Gap 9.4 BUN 18 H Creatinine 0.80 Estim Creat Clear Calc 80 Estimated GFR > 60 Glucose 124 H Calcium 9.0 Magnesium 2.3 Total Bilirubin 0.4 Direct Bilirubin 0.0 AST 18 ALT 17 Alkaline Phosphatase 85 Total Protein 7.0 Albumin 3.6 Microbiology 04/06/20 22:40 Urine Clean Catch Urine Culture - Final Klebsiella pnemoniae Patient Feedback: Patient satisfied with anesthetic care.
[2020-04-08 22:20] VITALS: BP 144/97; PULSE 74; RESP 16; TEMP 37.2; O2SAT 100
[2020-04-08] MEDS: buPROPion HCL XL (24 HR) 150 MG TABCR PO (22:25)
[2020-04-08] MEDS: traZODone HCL 50 MG TABLET 150 MG PO (22:25)
[2020-04-08 22:30] VITALS: PULSE 74; RESP 16; O2SAT 100
[2020-04-09] MEDS: MORPHINE SULFATE 4 MG/ML INJ IV PUSH ×3 (05:13→21:41)
[2020-04-09 05:17] VITALS: BP 152/98; PULSE 77; RESP 16; TEMP 36.5; O2SAT 99
[2020-04-09 06:35] LABS: Hemoglobin 12.6 g/dL (12.0-15.0); Mean Corpuscular HGB Conc 32.3 g/dl (32-36); Mean Corpuscular Hemoglobin 29.9 pg (26-34); Mean Corpuscular Volume 92.6 fl (80-100); Platelet Count Result 324 k/mm3 (150-375); Red Blood Count 4.21 M/mm3 (4.2-5.4); Red Cell Distribution Width 13.8 % (11.5-14.5); White Blood Count 8.1 K/mm3 (4.5-10.0)
[2020-04-09 06:46] LABS: Anion Gap 10.2 mmol/L (7-16); Blood Urea Nitrogen 17 mg/dL (7-17); Calcium 8.8 mg/dL (8.4-10.2); Carbon Dioxide 28 mmol/L (22-30); Chloride 104 mmol/L (98-107); Estimated CRCL calculation 65 ml/min; Estimated Glomerular Filt Rate 59; Glucose 105 mg/dL (65-105); Potassium 3.2 mmol/L (3.4-5.0); Sodium 139 mmol/L (137-145)
[2020-04-09 07:11] LABS: Hemoglobin A1C 5.3 % (<5.7)
[2020-04-09 08:00] VITALS: PULSE 77; RESP 16; O2SAT 99
[2020-04-09] MEDS: POTASSIUM CHLORIDE 20 MEQ TABLET 40 MEQ PO (08:55)
[2020-04-09] MEDS: LACTULOSE 20 GM/30 ML UDC 10 GM PO (08:59)
[2020-04-09] MEDS: DICYCLOMINE HCL 10 MG CAPSULE 20 MG PO ×3 (09:03→16:49)
[2020-04-09] MEDS: hydrOXYzine HCL 25 MG TABLET PO ×3 (09:03→16:48)
[2020-04-09] MEDS: GABAPENTIN 300 MG CAPSULE 600 MG PO ×2 (09:03→16:48)
[2020-04-09] MEDS: LORATADINE 10 MG TABLET PO (09:06)
--- NOTE | 2020-04-09 09:19 | WPDUROPN2 ---
Progress Note: A&P Assessment and Plan (1) Complicated UTI (urinary tract infection): Code(s): N39.0 - Urinary tract infection, site not specified Status: Acute (2) Ureteral stone with hydronephrosis: Code(s): N13.2 - Hydronephrosis with renal and ureteral calculous obstruction Status: Acute Assessment and Plan: Is s/p cysto, R URS with stone extraction and R stent for 3 mm R ureteral stone with UTI - urine cx growing Kleb; on cx-appropriate abx. Convert to PO abx at time of discharge - having ongoing RLQ/R lower back pain along trajectory of the stent uncontrolled with morphine and norco. Will add toradol and pyridium now. Discussed with hospitalist option to add flomax and oxybutynin IR PRN and possible conversion to percocet if pain persists. Monitor for constipation - will get KUB to ensure appropriate stent position. - once stent pain is controlled, OK for d/c from perspective and will see [facility] back for stent removal Subjective Subjective Date/Time Seen: 04/09/20 09:19 Having issues with right groin, right lower back and right hip pain. Is afebrile. Doesn't feel morphine and norco are helping Review of Systems Constitutional: Constitutional: Reports as per HPI Eyes: Eyes: Reports as per HPI Cardiovascular: Cardiovascular: Reports no additional cardiovascular complaints Gastrointestinal: Gastrointestinal: Reports abdominal pain Genitourinary: Genitourinary: Reports pelvic pain Exam Const: General: healthy appearing (states she is in pain ) HENMT: Head: normal to inspection Ears: hearing grossly normal bilaterally Eyes: General: appearance normal, both eyes and all related structures Neck: Neck: normal visual inspection Resp: Effort & Inspection: normal respiratory effort GI: GI Palp: Yes abdominal tenderness (RLQ/R groin) Psych: Appearance: grossly normal Mental Status: mental status grossly normal Objective Data Vital Signs Vital Signs: Vital Signs - 24 hr 04/08/20 22:20 04/08/20 22:30 04/09/20 05:17 Temperature 37.2 C 36.5 C Pulse Rate 74 74 77 Respiratory Rate 16 16 16 Blood Pressure 144/97 H 152/98 H Pulse Oximetry 100 100 99 Intake/Output Intake/Output: Intake & Output 04/06/20 04/07/20 04/08/20 04/09/20 23:59 23:59 23:59 23:59 Intake Total 1500 2330 2100 672 Output Total 1000 1375 1000 Balance 1500 1330 725 -328 Meds/Results Medications: Active Medications Generic Name Dose Route Start Last Admin Trade Name Freq PRN Reason Stop Dose Admin Acetaminophen 650 mg 04/07/20 16:28 Tylenol Tablet PO Q4H PRN pain 1-3 Hydrocodone Bitart/Acetaminophen 1 tab 04/08/20 08:08 04/09/20 00:12 [place] 7.5-325 Mg PO 1 tab Q6H PRN Administration Pain Rated 4-6 Bupropion HCl 150 mg 04/07/20 21:00 04/08/20 22:25 Wellbutrin Xl (24 Hr) PO 150 mg HS EDDIE Administration Dicyclomine HCl 20 mg 04/07/20 17:00 04/09/20 09:03 Bentyl Capsule PO 20 mg TID EDDIE Administration Gabapentin 600 mg 04/08/20 09:00 04/09/20 09:03 Neurontin PO 600 mg BID EDDIE Administration Hydroxyzine HCl 25 mg 04/07/20 17:00 04/09/20 09:03 Atarax Tablet PO 25 mg TID EDDIE Administration Ceftriaxone Sodium/Dextrose 1 gm in 50 mls @ 100 mls/hr 04/07/20 21:00 04/08/20 22:55 Rocephin 1 Gm/D5w 50 Ml IVPB Infused Q24H EDDIE Infusion Ketorolac Tromethamine 30 mg 04/09/20 09:17 Toradol Inj IV PUSH Q6H PRN Pain Rated 4-6 Lactulose 10 gm 04/07/20 17:00 04/09/20 08:59 Lactulose PO 05/07/20 17:01 10 gm BID EDDIE Administration Loratadine 10 mg 04/07/20 09:00 04/09/20 09:06 Claritin PO 10 mg DAILY EDDIE Administration Morphine Sulfate 4 mg 04/07/20 00:49 04/09/20 08:54 Morphine Sulfate Inj IV PUSH 4 mg Q2H PRN Administration Pain Rated 7-10 Phenazopyridine HCl 100 mg 04/09/20 17:00 Pyridium PO BID EDDIE Trazodone HCl 150 mg 04/07/20 18:
[2020-04-09] MEDS: PHENAZOPYRIDINE HCL 100 MG TABLET PO ×2 (10:25→16:49)
[2020-04-09] MEDS: KETOROLAC 30 MG/ML VIAL (*BKC) IV PUSH (10:36)
--- NOTE | 2020-04-09 10:46 | PM.IMPN ---
Progress Note: A&P Assessment and Plan (1) Uncontrolled pain: Code(s): R52 - Pain, unspecified Status: Acute Assessment and Plan: ----- patient's pain is uncontrolled at this time. We got an abdominal x-ray which shows the stent at the expected position without any evidence of additional kidney stones. She is receiving morphine and [place] 7.5. Toradol and pyridium was added today. I spoke with Urology who said that if this does not work we could add Flomax or oxybutynin but we will try the Toradol 1st. The plan is to keep her overnight for uncontrolled pain and reassess tomorrow morning. (2) Complicated UTI (urinary tract infection): Code(s): N39.0 - Urinary tract infection, site not specified Status: Acute Assessment and Plan: ------UA and culture + for kelbsiela and sensitive to ceftriaxone. Pt is still in a lot of pain and does not think she can discharge. She has been afebrile for 24 hours so far. Blood cultures pending. (3) Sepsis: Qualifiers: Sepsis type: sepsis due to unspecified organism Sepsis acute organ dysfunction status: without acute organ dysfunction Qualified Code(s): A41.9 - Sepsis, unspecified organism Code(s): A41.9 - Sepsis, unspecified organism Status: Acute Assessment and Plan: ------ Patient had leukocytosis and tachycardia on admission. No blood cultures were drawn as stated above. Will continue ceftriaxone. Blood cultures negative to date. Source appears to be urinary. (4) Ureteral stone with hydronephrosis: Code(s): N13.2 - Hydronephrosis with renal and ureteral calculous obstruction Status: Acute Assessment and Plan: ----- stone extracted and stent placed. (5) Leukocytosis: Qualifiers: Leukocytosis type: unspecified Qualified Code(s): D72.829 - Elevated white blood cell count, unspecified Code(s): D72.829 - Elevated white blood cell count, unspecified Status: Acute Assessment and Plan: -----resolved. Secondary to UTI. Monitor CBCd. Additional Plan Subjective Date/time seen: 04/09/20 10:46 Interval history: Pt is a 49-year-old female here for kidney stone and UTI. patient was seen today and said she was in pain most of the night was unable to sleep. She says she is having severe pain to her right flank. She mentions that she has had multiple stents before nothing has felt like this. She states she is unable to go home because of this pain. She is not eating and drinking very much at this time due to this. She has some dysuria. She denies chest pain, shortness of breath, nausea, vomiting, diarrhea or constipation. She states that she needs 30ml of lactulose 3 times a day. I called her pharmacy and this is not which she was prescribed but she claims that her surgeon says that she needs the increased dose. Exam Narrative: Exam Narrative: General: Well developed well nourished patient in NAD HEENT: normocephalic, edentulous on the top teeth Neck: supple Neuro: Alert and oriented x4 CV:RRR Resp:CTA Abd: Soft, non distended. pain to palpation to the RLQ. Positive bowel sounds. Significant right CVA tenderness Extremities: No swelling, erythema, or pain to palpation. Objective Data Vital Signs Vital Signs: Vital Signs - 24 hr 04/08/20 22:20 04/08/20 22:30 04/09/20 05:17 Temperature 99.0 F 97.7 F Pulse Rate 74 74 77 Respiratory Rate 16 16 16 Blood Pressure 144/97 H 152/98 H Pulse Oximetry 100 100 99 04/09/20 08:00 Temperature Pulse Rate 77 Respiratory Rate 16 Blood Pressure Pulse Oximetry 99 Intake/Output Intake/Output: Intake & Output 04/06/20 04/07/20 04/08/20 04/09/20 23:59 23:59 23:59 23:59 Intake Total 1500 2330 2100 912 Output Total 1000 1375 1000 Balance 1500 1330 725 -88 Meds/Results Medications: Active Medications Generic Name Dose Route Start Last Admin Trade Name Freq PRN Re
[2020-04-09] MEDS: LACTULOSE 20 GM/30 ML UDC PO ×2 (12:42→16:48)
[2020-04-09 14:38] VITALS: BP 147/85; PULSE 60; RESP 16; TEMP 36.2; O2SAT 100
[2020-04-09 21:15] VITALS: PULSE 78; RESP 16; O2SAT 97
[2020-04-09 21:36] VITALS: BP 128/81; PULSE 78; RESP 16; TEMP 37.1; O2SAT 97
[2020-04-09] MEDS: traZODone HCL 50 MG TABLET 150 MG PO (21:39)
[2020-04-09] MEDS: buPROPion HCL XL (24 HR) 150 MG TABCR PO (21:41)
[2020-04-10 03:54] VITALS: BP 135/85; PULSE 66; RESP 14; TEMP 36.3; O2SAT 100
--- NOTE | 2020-04-10 04:00 | PC.NURSE ---
Pt stated to attendance secretary she doesn't understand why she is still here, and that no doctor came to see her on Saturday. Pt continued to state she knows the doctors know what medication she needs so she can go home. Pt educated that Elenita KELSEY had came to see her on Saturday and the reason she stayed in the hospital was her, the pt, stating her pain was to extreme to go home yet.
[2020-04-10] MEDS: MORPHINE SULFATE 4 MG/ML INJ IV PUSH (06:16)
[2020-04-10 06:34] LABS: Anion Gap 10.4 mmol/L (7-16); Blood Urea Nitrogen 14 mg/dL (7-17); Calcium 8.5 mg/dL (8.4-10.2); Carbon Dioxide 25 mmol/L (22-30); Chloride 106 mmol/L (98-107); Estimated CRCL calculation 65 ml/min; Estimated Glomerular Filt Rate 59; Glucose 144 mg/dL (65-105); Potassium 3.4 mmol/L (3.4-5.0); Sodium 138 mmol/L (137-145)
[2020-04-10] MEDS: LACTULOSE 20 GM/30 ML UDC PO (09:06)
[2020-04-10] MEDS: DICYCLOMINE HCL 10 MG CAPSULE 20 MG PO (09:06)
[2020-04-10] MEDS: hydrOXYzine HCL 25 MG TABLET PO (09:06)
[2020-04-10] MEDS: GABAPENTIN 300 MG CAPSULE 600 MG PO (09:06)
[2020-04-10 09:07] VITALS: RESP 16; O2SAT 100
[2020-04-10] MEDS: PHENAZOPYRIDINE HCL 100 MG TABLET PO (09:07)
[2020-04-10] MEDS: LORATADINE 10 MG TABLET PO (09:07)
[2020-04-10] MEDS: KETOROLAC 30 MG/ML VIAL (*BKC) IV PUSH (09:35)
--- NOTE | 2020-04-10 10:11 | PM.DS ---
DS: Admitting Diagnosis Admitting Diagnosis Admitting Diagnosis: Urinary tract infection, site not specified DS: Discharge Diagnosis Discharge Diagnosis (1) Uncontrolled pain: Code(s): R52 - Pain, unspecified Status: Acute Assessment and Plan: ----- patient had uncontrolled pain which have turned the hospital additional day. She responded better with Toradol added to her pain regimen. At discharge, she was told to take ibuprofen as needed and she was given [place] for uncontrolled pain at home. (2) Complicated UTI (urinary tract infection): Code(s): N39.0 - Urinary tract infection, site not specified Status: Acute Assessment and Plan: ------UA and culture + for kelbsiela and sensitive to Cefdinir. blood cultures are negative today and will be monitored until finalized. (3) Sepsis: Qualifiers: Sepsis type: sepsis due to unspecified organism Sepsis acute organ dysfunction status: without acute organ dysfunction Qualified Code(s): A41.9 - Sepsis, unspecified organism Code(s): A41.9 - Sepsis, unspecified organism Status: Acute Assessment and Plan: ------ Patient had leukocytosis and tachycardia on admission. No blood cultures were drawn as stated above. Will continue Cefdinir outpatient. Blood cultures negative to date. Source appears to be urinary. (4) Ureteral stone with hydronephrosis: Code(s): N13.2 - Hydronephrosis with renal and ureteral calculous obstruction Status: Acute Assessment and Plan: ----- stone extracted and stent placed. Plan to follow up with Urology outpatient for removal of the stent (5) Leukocytosis: Qualifiers: Leukocytosis type: unspecified Qualified Code(s): D72.829 - Elevated white blood cell count, unspecified Code(s): D72.829 - Elevated white blood cell count, unspecified Status: Acute Assessment and Plan: -----resolved. Secondary to UTI. Monitor CBCd. DS: Summary Hospital Course Reason for hospitalization: kidney stone with infection Hospital Course: patient is a 49-year-old female with a past medical history of kidney stones who presented emergency room for right flank, hip and back pain with nausea vomiting and fever. Patient was found to have a 3.mm kidney stone With mild right hydronephrosis. White blood cell count 13.4 on admission and UA suspicious for UTI. patient underwent a cystoscopy with stone extraction and stent placement. she had some problems with pain after procedure which improved after few days. Her blood cultures are negative and will be monitored until finalized. The patient felt ready for discharge the day of discharge and was educated about the worrisome signs and symptoms come back to emergency room for. She was discharged in stable condition and is going to follow-up with urology. Status at Discharge Functional status at discharge: independent ambulation Overall status at discharge: patient is progressing back to baseline Time Spent with Patient Time attestation: Total time spent providing and/or coordinating discharge services:32 min Time spent: Greater than 30 minutes Exam Narrative: Exam Narrative: General: Well developed well nourished patient in NAD HEENT: normocephalic, edentulous on the top teeth Neck: supple Neuro: Alert and oriented x4 CV:RRR Resp:CTA Abd: Soft, non distended. pain to palpation to the RLQ. Positive bowel sounds. Slight right CVA tenderness-- improved from yesterday Extremities: No swelling, erythema, or pain to palpation. DS: Data Data Completed and Pending Pending studies at discharge: Pending at discharge 04/07/20 10:48 Surgical [PTH] Routine Labs on day of discharge: Labs from last 24 hours 04/10/20 05:39 Sodium 138 Potassium 3.4 Chloride 106 Carbon Dioxide 25 Anion Gap 10.4 BUN 14 Creatinine 1.00 Estim Creat Clear Calc 65 Estimated GFR
--- NOTE | 2020-04-15 09:46 | PC.NURSE ---
Blood cx is negative
== END 2020-04-10 11:40 | disposition home or self-care (01) | DRG 710 ==
LOC: ANHED 04-07 00:56 → ANH3MED 04-07 01:08
PROVIDERS: Anesthesiology; Physician Assistant; Urology; Admitting Provider Family Medicine; Emergency Provider Emergency Medicine; Visit Provider Family Medicine
PROC: 0TC68ZZ Extirpation of Matter from Right Ureter, Via Natural or Artificial Opening Endoscopic (ICD-10-PCS; CPT 52352; principal; 2020-04-07 11:00)
DX: A41.9 Sepsis, unspecified organism (principal); G62.9 Polyneuropathy, unspecified; N13.6 Pyonephrosis; B96.1 Klebsiella pneumoniae [K. pneumoniae] as the cause of diseases classified elsewhere; R52 Pain, unspecified; Z79.899 Other long term (current) drug therapy
CPT/HCPCS: 36415; 74018; 74176; 74420; 80048; 80053; 80076; 81001; 82365; 83036; 83690; 83735; 84702; 85025; 85027; 87040; 87077; 87086; 87088; 87186; 88300; 96361; 96365; 96374; 96375; 96376; 99285; A9270; C1769; C2617; G0378; G0379; J0131; J0696; J1100; J1885; J2250; J2270; J2405; J2704; J3010; J7030; J7040; J7120; Q9966

== ENCOUNTER 2020-04-25 08:40 | Outpatient (CLI) | payer OTHER, SELFPAY ==
--- NOTE | ~2020-04-25 | XR_ITS ---
XR abdomen/kub 1V DATE: 04/25/2020 09:00 INDICATION: Right ureteral stone TECHNIQUE: AP view COMPARISON: 04/09/2020 KUB 04/07/2020 right retrograde pyelogram with right stent 04/06/[address] abdomen pelvis FINDINGS: There is a right internal urinary stent, the proximal pigtail overlying the mid to upper ri ght kidney, the distal pigtail overlying the bladder at midline. No obvious urinary tract calcificati ons are noted. The right ureteropelvic junction calcified calculus on 04/06/2020 is quite faint and co uld conceivably be relatively radiographically occult in the lower pole of the right kidney on the cu rrent examination. Noncontrast CT abdomen pelvis would be more sensitive for detection and location of urinary tract sto raina. IMPRESSION: Right internal urinary stent in expected position (Noncontrast CT abdomen pelvis examination would be more sensitive for detection of subtle noncalcifi ed or faintly calcified urinary tract stones. Reviewed, dictated and finalized at [facility]. Reviewed, dictated and finalized at [facility]. IMPRESSION: Right internal urinary stent in expected position (Noncontrast CT abdomen pelvis examination would be more sensitive for detectio n of subtle noncalcified or faintly calcified urinary tract stones.
== END 2020-04-25 08:41 | disposition home or self-care (01) ==
LOC: ANHIMG 08:44
PROVIDERS: Visit Provider Urology
DX: N20.1 Calculus of ureter (principal)
CPT/HCPCS: 74018

== ENCOUNTER 2020-05-08 07:43 | Emergency (ER) | payer OTHER, SELFPAY ==
[2020-05-08 07:47] VITALS: BP 137/101; PULSE 88; RESP 20; TEMP 36.9; O2SAT 100
--- NOTE | 2020-05-08 07:59 | ED.FEMALEGU ---
HPI - Female Genitourinary General Chief complaint: Urogenital-Female Stated complaint: bacterial infection down below Time Seen by Provider: 05/08/20 07:51 History of Present Illness HPI Narrative: She has pain and redness in the vaginal region for about one week. This is associated with blue, yellow, green, higuera discharge, with some red in it. She was started on fluconazole yesterday for suspected yeast infection. She feels like it is worse today. She says that she has had bacterial infections down there before. She was recently treated for UTI and kidney stone. This involved antibiotics and placement of a ureteral stent. Related Data Home Medications Medication Instructions Recorded Confirmed trazodone 150 mg PO HS 04/06/20 04/07/20 bupropion HCl 150 mg PO DAILY 04/07/20 04/07/20 clobetasol 0.05 % TOPICAL BID 04/07/20 04/07/20 dicyclomine 20 mg PO TID 04/07/20 04/07/20 gabapentin 600 mg PO BID 04/07/20 04/07/20 hydroxyzine HCl 25 mg PO TID 04/07/20 04/07/20 lactulose 5 ml PO TID 04/07/20 04/09/20 loratadine 10 mg PO DAILY 04/07/20 04/07/20 bupropion HCl mg PO 05/08/20 buspirone mg 05/08/20 clobetasol TOPICAL 05/08/20 loratadine mg 05/08/20 loratadine mg 05/08/20 Allergies Allergy/AdvReac Type Severity Reaction Status Date / Time No Known Allergies Allergy Verified 05/08/20 07:58 Review of Systems Review of Systems: All systems reviewed & are unremarkable except as noted in HPI and below Constitutional: Constitutional: Reports chills ENT: Denies sore throat Cardiovascular: Cardiovascular: Denies chest pain Respiratory: Respiratory: Denies dyspnea Gastrointestinal: Gastrointestinal: Denies abdominal pain, Denies nausea and Denies vomiting Genitourinary: Genitourinary: Denies hematuria, Denies dysuria, Denies flank pain and Reports vaginal discharge Neurologic: Denies weakness PMFSH Social History Social History Smoking status: Never smoker Alcohol intake: current Drinks per week: 2 Substance use: never Substance use type: does not use Gender identity (if verbalized by the patient): Female Sexual Orientation (if Verbalized by the Patient): Straight or Heterosexual Spiritual care concerns: No Exam Const: General: no acute distress and alert Orientation/consciousness: patient oriented x3 HENMT: Head: normal to inspection GI: GI Palp: Yes Soft to palpation and No Tenderness to palpation present (GI) : Other: mild white discharge. erythema of external genitalia, vagina, and cervix with scattered petechiae. No CMT. Skin: General skin exam: normal color Neuro: General: patient oriented x3 and moves all extremities Speech: normal speech Gait exam (Neuro): Normal gait present Extrem: General: normal to inspection Course Vital Signs Vital signs: Vital Signs Temperature 36.9 C 05/08/20 07:47 Pulse Rate 88 05/08/20 07:47 Respiratory Rate 20 05/08/20 07:47 Blood Pressure 137/101 H 05/08/20 07:47 Pulse Oximetry 100 05/08/20 07:47 Temperature 36.9 C 05/08/20 08:01 Pulse Rate 82 05/08/20 09:44 Respiratory Rate 16 05/08/20 09:44 Blood Pressure 132/82 05/08/20 09:44 Pulse Oximetry 100 05/08/20 09:44 MDM - Female Genitourinary MDM Narrative Medical decision making narrative: Could be severe yeast infection. she is certainly at risk given recent antibiotics. Exam more consistent with cervicitis. I will treat her for this and have her finish the fluconazole. Medical Records Attestation: I reviewed the patient's medical records. Lab Data Attestation: I reviewed the patient's lab results. Labs: Lab Results 05/08/20 05/08/20 05/08/20 Range/Units 08:40 08:40 08:47 Urine Color Yellow (Yellow) Urine Appearance Clear (Clear) Urine pH 6.0 (5.0-9.0) Ur Specific [place] 1.018 (1.001-1.035) Urine Protein Negative (Negative) mg/dL Urine Glucose (UA)
[2020-05-08 08:01] VITALS: BP 137/101; PULSE 88; RESP 20; TEMP 36.9; O2SAT 100
--- NOTE | 2020-05-08 08:18 | PC.NURSE ---
erp dr hansen at bedside for pelvic examination at this time.
[2020-05-08] MEDS: cefTRIAXone 250 MG VIAL IM (08:45)
[2020-05-08] MEDS: LIDOCAINE HCL 1% LOCAL INJ 20 ML VIAL (08:45)
[2020-05-08] MEDS: AZITHROMYCIN 250 MG TABLET 1000 MG PO (08:45)
[2020-05-08] MEDS: metroNIDAZOLE 250 MG TABLET 2000 MG PO (08:45)
[2020-05-08 09:05] LABS: Add Urine Microscopic? YES; Appearance Urine Clear (Clear); Bilirubin Urine Negative (Negative); Blood Urine Negative (Negative); Color Urine Yellow (Yellow); Glucose Urine UA Negative (Negative); Ketones Urine Negative (Negative); Leukocyte Esterase Ur 1+ LEU/UL (Negative); Mucus Urine Few /lpf; Nitrate Urine Negative (Negative); Protein Urine Negative (Negative); RBC Urine 0-2 /hpf (0-2); Specific Grav Ur 1.018 (1.001-1.035); Squamous Epithelial Cell Urine Few /hpf (Few); Urobilinogen Urine Negative mg/dL (<2.0)
[2020-05-08 09:44] VITALS: BP 132/82; PULSE 82; RESP 16; O2SAT 100
== END 2020-05-08 09:50 | disposition home or self-care (01) ==
PROVIDERS: Emergency Provider Emergency Medicine
DX: A59.09 Other urogenital trichomoniasis (principal)
CPT/HCPCS: 81001; 87070; 87086; 87491; 87591; 87808; 96372; 99284; A9270; J0696

== ENCOUNTER 2020-05-21 11:40 | Outpatient (CLI) | payer OTHER, SELFPAY ==
[2020-05-21 12:29] LABS: Basophils Absolute Auto 0.1 K/mm3 (0.0-0.1); Basophils Percent Auto 0.9 % (0.2-1.2); Eosinophils Absolute Auto 0.3 K/mm3 (0-0.3); Eosinophils Percent Auto 3.8 % (0-4.4); Hematocrit 38.1 % (37.0-47.0); Hemoglobin 12.5 g/dL (12.0-15.0); Immature Granulocyte Absolute 0.03 K/mm3 (0.00-0.031); Immature Granulocyte Percent A 0.4 % (0-0.5); Lymphocytes Absolute Auto 3.24 K/mm3 (0.9-3.2); Mean Corpuscular HGB Conc 32.8 g/dl (32-36); Mean Corpuscular Hemoglobin 30.5 pg (26-34); Mean Corpuscular Volume 92.9 fl (80-100); Mean Platelet Volume 10.1 fl (7.4-10.4); Monocytes Absolute Auto 0.4 K/mm3 (0.1-0.6); Monocytes Percent Auto 5.4 % (2.6-8.5); Neutrophils Percent Auto 49.5 % (45.5-73.1); Platelet Count Result 297 k/mm3 (150-375); Red Cell Distribution Width 13.3 % (11.5-14.5); White Blood Count 8.1 K/mm3 (4.5-10.0)
[2020-05-21 12:54] LABS: Alanine Aminotransferase 24 U/L (4-35); Albumin Level 3.8 g/dL (3.5-5.1); Alkaline Phosphatase 73 U/L (38-126); Anion Gap 4 mmol/L (8-16); Aspartate Amino Transferase 26 U/L (14-36); Bilirubin,Total 0.5 mg/dL (0.2-1.3); Blood Urea Nitrogen 16 mg/dL (7-17); Calcium 8.9 mg/dL (8.4-10.2); Carbon Dioxide 29 mmol/L (22-30); Chloride 107 mmol/L (98-107); Cholesterol 210 mg/dL (0-200); Estimated Glomerular Filt Rate 59; Glucose 121 mg/dL (65-105); HDL Direct 33 mg/dL; Potassium 3.6 mmol/L (3.4-5.0); Sodium 140 mmol/L (137-145); Triglycerides 206 mg/dL (<150)
[2020-05-21 13:05] LABS: LDL Cholesterol Direct 149 mg/dL
== END 2020-05-21 11:41 | disposition home or self-care (01) ==
DX: R53.83 Other fatigue (principal); E78.2 Mixed hyperlipidemia; Z72.51 High risk heterosexual behavior
CPT/HCPCS: 36415; 80053; 80061; 85025; 87491; 87591

== ENCOUNTER 2020-07-13 14:58 | Emergency (ER) | payer OTHER, SELFPAY ==
--- NOTE | ~2020-07-13 | CT_ITS ---
EXAMINATION: CT abdomen pelvis wo con DATE: 07/13/2020 16:04 INDICATION: Right flank pain TECHNIQUE: Computed tomography (CT) of the abdomen and pelvis was performed without intravenous contr ast. Automated exposure control and iterative reconstruction technique were employed. The dose-length product was 697.44 mGy-cm. COMPARISON: 04/06/2020 FINDINGS: Unchanged 5 mm right middle lobe nodule. There is also mild discoid atelectasis in the right middle l obe. Acute small calcified nodules in the left lower lobe consistent with old granulomatous disease. Heart size is normal. No pericardial or pleural effusion. Diffuse hepatic steatosis with focal sparin g along the gallbladder fossa. Gallbladder, pancreas and bilateral adrenal glands are normal. Splenic calcifications consistent with old granulomatous disease. 1 mm nonobstructing stone in the upper yue e calyx of the left kidney. Bilateral kidneys and ureters are otherwise normal with no other urolithi asis or hydroureteronephrosis. Appendix is normal. There is mild colonic diverticulosis with a sigmoi d predominance. There is no adjacent inflammatory change to suggest diverticulitis. No bowel obstruc tion. Bladder, uterus and bilateral ovaries are normal. Likely symmetric small densities on either si de of the ovaries which could represent phleboliths or tubal ligation rings. Trace amount of likely p hysiologic free fluid in the cul-de-sac. No pathologically enlarged abdominal or pelvic lymphadenopat hy. Mild thoracolumbar spondylosis. IMPRESSION: 1. 1 mm nonobstructing left renal stone. 2. Diffuse hepatic steatosis. 2. Indeterminate 5 mm right middle lobe nodule. If the patient is low risk for lung cancer, no follow -up is needed. If the patient is high risk (i.e., history of smoking or asbestos or significant radia tion exposure), optional follow-up low-dose noncontrast chest CT could be considered at 12 months. Reviewed, dictated and finalized at [facility]. IMPRESSION: 1. 1 mm nonobstructing left renal stone. 2. Diffuse hepatic steatosis. 2. Indeterminate 5 mm right middle lobe nodule. If the patient is low risk for lung cancer, no follow-up is needed. If the patient is high risk (i.e., history of smoking or asbestos or significant radiation exposure), optional follow-up low-dose noncontrast chest CT could be considered at 12 months.
[2020-07-13 15:05] VITALS: BP 133/86; PULSE 88; RESP 16; TEMP 36.3; O2SAT 99
[2020-07-13 15:18] LABS: Basophils Absolute Auto 0.1 K/mm3 (0.0-0.1); Basophils Percent Auto 0.8 % (0.2-1.2); Eosinophils Absolute Auto 0.2 K/mm3 (0-0.3); Eosinophils Percent Auto 2.6 % (0-4.4); Hematocrit 46.9 % (37.0-47.0); Hemoglobin 15.5 g/dL (12.0-15.0); Immature Granulocyte Absolute 0.02 K/mm3 (0.00-0.031); Immature Granulocyte Percent A 0.2 % (0-0.5); Lymphocytes Absolute Auto 3.18 K/mm3 (0.9-3.2); Lymphocytes Percent Auto 36.4 % (18.3-44.2); Mean Corpuscular Hemoglobin 30.9 pg (26-34); Mean Corpuscular Volume 93.4 fl (80-100); Mean Platelet Volume 9.2 fl (7.4-10.4); Monocytes Absolute Auto 0.5 K/mm3 (0.1-0.6); Monocytes Percent Auto 5.8 % (2.6-8.5); Neutrophils Absolute Auto 4.7 K/mm3 (1.3-6.7); Neutrophils Percent Auto 54.2 % (45.5-73.1); Platelet Count Result 318 k/mm3 (150-375); Red Blood Count 5.02 M/mm3 (4.2-5.4); Red Cell Distribution Width 13.2 % (11.5-14.5); White Blood Count 8.7 K/mm3 (4.5-10.0)
[2020-07-13 15:26] LABS: Add Urine Microscopic? NO; Appearance Urine Clear (Clear); Bilirubin Urine Negative (Negative); Blood Urine Negative (Negative); Color Urine Yellow (Yellow); Glucose Urine UA Negative (Negative); Ketones Urine Negative (Negative); Leukocyte Esterase Ur Negative LEU/UL (Negative); Nitrate Urine Negative (Negative); Protein Urine Negative (Negative); Specific Grav Ur 1.021 (1.001-1.035); Urobilinogen Urine Negative mg/dL (<2.0)
[2020-07-13 15:30] LABS: Alanine Aminotransferase 22 U/L (4-35); Albumin Level 4.7 g/dL (3.5-5.1); Alkaline Phosphatase 77 U/L (38-126); Anion Gap 7 mmol/L (8-16); Aspartate Amino Transferase 32 U/L (14-36); Bilirubin,Total 0.8 mg/dL (0.2-1.3); Blood Urea Nitrogen 18 mg/dL (7-17); Calcium 9.6 mg/dL (8.4-10.2); Carbon Dioxide 31 mmol/L (22-30); Chloride 104 mmol/L (98-107); Estimated CRCL calculation 64 ml/min; Estimated Glomerular Filt Rate 59; Glucose 116 mg/dL (65-105); Lipase 371 U/L (23-300); Potassium 3.9 mmol/L (3.4-5.0); Sodium 142 mmol/L (137-145)
[2020-07-13] MEDS: ONDANSETRON INJ 4 MG/2 ML VIAL IV PUSH (16:22)
[2020-07-13] MEDS: KETOROLAC 15 MG/ML VIAL (*BKC) IV PUSH (16:23)
--- NOTE | 2020-07-13 16:37 | ED.GENADULT ---
HPI - General Adult General Chief complaint: Abdominal Pain Stated complaint: right flank pain Time Seen by Provider: 07/13/20 15:10 Source: patient Mode of arrival: ambulatory Limitations: no limitations History of Present Illness HPI narrative: Patient presents with chief complaints of right flank pain over the past 3 days and mild nausea. Patient states she is not sure if she has a kidney stone or if she is having a flareup of her chronic back pain. Patient denies any blood in her urine. She denies any fever, chills, or vomiting. Patient denies any recent trauma or other symptoms or concerns. Related Data Home Medications Medication Instructions Recorded Confirmed trazodone 150 mg PO HS 04/06/20 04/07/20 bupropion HCl 150 mg PO DAILY 04/07/20 04/07/20 clobetasol 0.05 % TOPICAL BID 04/07/20 04/07/20 dicyclomine 20 mg PO TID 04/07/20 04/07/20 gabapentin 600 mg PO BID 04/07/20 04/07/20 hydroxyzine HCl 25 mg PO TID 04/07/20 04/07/20 lactulose 5 ml PO TID 04/07/20 04/09/20 loratadine 10 mg PO DAILY 04/07/20 04/07/20 buspirone mg 05/08/20 clobetasol TOPICAL 05/08/20 loratadine mg 05/08/20 albuterol sulfate 90 mcg/actuation 1 inh INHALATION Q4-6H PRN 07/12/20 breath activated powder inhaler dicyclomine 20 mg tablet 20 mg PO TID 07/12/20 ibuprofen 800 mg tablet 800 mg PO Q6H 07/12/20 tizanidine 4 mg tablet 4 mg PO BID PRN tablet 07/12/20 Allergies Allergy/AdvReac Type Severity Reaction Status Date / Time No Known Allergies Allergy Verified 07/13/20 15:11 Review of Systems Review of Systems: Narrative: CONSTITUTIONAL: Denies fever, chills, or sweats. EYES: Denies visual changes, redness, or discharge. ENT: Denies rhinorrhea, congestion, sore throat, or otalgia. CARDIOVASCULAR: Denies chest pain, palpitations, or edema. RESPIRATORY: Denies cough or dyspnea. GASTROINTESTINAL: Denies abdominal pain, nausea, vomiting, or diarrhea. GENITOURINARY: Denies dysuria or hematuria. SKIN: Denies rash or itching. MUSCULOSKELETAL: Reports right flank/back pain, denies myalgia, or joint pain NEUROLOGIC: Denies headache, numbness, dizziness, or weakness. PSYCHIATRIC: Denies anxiety or depression. [facility] Past Medical History Medical History (Updated 07/13/20 @ 16:41 by Karen Olvera PA-C) Asthma Bipolar 1 disorder Complicated UTI (urinary tract infection) Disc degeneration, lumbar History of anxiety History of peripheral neuropathy Neck pain Obesity Sepsis Ureteral stone with hydronephrosis Surgical History Surgical History (Updated 07/12/20 @ 11:29 by Jeannette Hurley [facility]) H/O knee surgery History of hysterectomy History of ureter stent Hx of cystoscopy Kidney stone Family History Family History (Updated 07/12/20 @ 11:30 by Jeannette Hurley [facility]) Father Diabetes mellitus Grandparent Cancer Social History Social History Smoking status: Never smoker Alcohol intake: current Drinks per week: 2 Substance use: never Substance use type: does not use Gender identity (if verbalized by the patient): Female Spiritual care concerns: No Exam Narrative: Exam Narrative: GENERAL: Well-appearing, well-nourished. HEAD: Normocephalic, atraumatic. EYES: PERRLA and EOMI. ENT: Nares clear, no rhinorrhea or epistaxis. Mucous membranes moist. Oropharynx without tonsillar hypertrophy exudate or other lesions. Bilateral TMs pearly dumont nonbulging NECK: Supple. No adenopathy or masses. No vertebral tenderness or loss of ROM. CHEST: Clear to auscultation. No respiratory distress. No wheezes rales or rhonchi HEART: Regular rate and rhythm. BACK: No CVA tenderness. No outward signs of trauma or injury. Range of motion intact. ABDOMEN: Soft, nontender, nondistended, normal active bowel sounds. No bruises noted. EXTREMITIES: No acute changes in ROM. No edema. SKIN: Warm, dry, no rash. NEURO: No focal deficits. Alert and oriented
[2020-07-13 17:03] VITALS: PULSE 88; RESP 16; O2SAT 98
== END 2020-07-13 17:05 | disposition home or self-care (01) ==
PROVIDERS: Emergency Provider Emergency Medicine
DX: R10.9 Unspecified abdominal pain (principal); M54.5 Low back pain; K76.0 Fatty (change of) liver, not elsewhere classified; R91.1 Solitary pulmonary nodule; J45.909 Unspecified asthma, uncomplicated; F31.9 Bipolar disorder, unspecified; F41.9 Anxiety disorder, unspecified
CPT/HCPCS: 36415; 74176; 80053; 81003; 83690; 85025; 96374; 96375; 99284; J1885; J2405

== ENCOUNTER 2020-08-09 09:45 | Outpatient (CLI) | payer OTHER, SELFPAY ==
--- NOTE | ~2020-08-09 | XR_ITS ---
XR cervical spine min 6V 08/09/2020 10:09 Indication: Chronic neck pain Procedure: 6 views of the cervical spine Comparison: No prior studies for comparison. Findings: Reversal of cervical lordosis. No prevertebral soft tissue abnormality. No radiopaque forei gn bodies. Odontoid process within normal limits. There is mild disc narrowing and endplate hypertrop hy at C4-5 and C5-6. Impression: 1: Mild cervical spondylosis. Reviewed, dictated and finalized at [facility]. HOLDER Impression: 1: Mild cervical spondylosis.
== END 2020-08-09 09:46 | disposition home or self-care (01) ==
DX: M47.892 Other spondylosis, cervical region (principal)
CPT/HCPCS: 72052

== ENCOUNTER 2020-09-07 15:17 | Emergency (ER) | payer OTHER, SELFPAY ==
[2020-09-07 15:21] VITALS: BP 143/77; PULSE 75; RESP 18; TEMP 36.9; O2SAT 99
--- NOTE | 2020-09-07 16:10 | ED.FEMALEGU ---
HPI - Female Genitourinary General Chief complaint: Urogenital-Female Stated complaint: vaginal discharge Time Seen by Provider: 09/07/20 15:46 Source: patient Mode of arrival: ambulatory Limitations: no limitations History of Present Illness HPI Narrative: Patient is 49 years old white female presents with burning urination for the last 6 days, vaginal discharge of unknown color or odor for the last 3 days. Patient reports that her boyfriend probably cheating on her. Patient started on medication recently for joints pain, does not know the name of it. Patient denies any fever, chills, nausea, vomiting or Covid 19 exposure History of bipolar, anxiety. Related Data Home Medications Medication Instructions Recorded Confirmed trazodone 150 mg PO HS 04/06/20 08/23/20 bupropion HCl 150 mg PO DAILY 04/07/20 08/23/20 clobetasol 0.05 % TOPICAL BID 04/07/20 08/23/20 dicyclomine 20 mg PO TID 04/07/20 08/23/20 gabapentin 600 mg PO BID 04/07/20 08/23/20 hydroxyzine HCl 25 mg PO TID 04/07/20 08/23/20 lactulose 5 ml PO TID 04/07/20 08/23/20 loratadine 10 mg PO DAILY 04/07/20 08/23/20 buspirone mg 05/08/20 08/23/20 clobetasol TOPICAL 05/08/20 08/23/20 loratadine mg 05/08/20 08/23/20 albuterol sulfate 90 mcg/actuation 1 inh INHALATION Q4-6H PRN 07/12/20 08/23/20 breath activated powder inhaler dicyclomine 20 mg tablet 20 mg PO TID 07/12/20 08/23/20 ibuprofen 800 mg tablet 800 mg PO Q6H 07/12/20 08/23/20 tizanidine 4 mg tablet 4 mg PO BID PRN tablet 07/12/20 08/23/20 Allergies Allergy/AdvReac Type Severity Reaction Status Date / Time No Known Allergies Allergy Verified 08/23/20 10:46 Review of Systems Review of Systems: Narrative: CONSTITUTIONAL: Denies fever, chills, or sweats. EYES: Denies visual changes, redness, or discharge. ENT: Denies rhinorrhea, congestion, sore throat, or otalgia. CARDIOVASCULAR: Denies chest pain, palpitations, or edema. RESPIRATORY: Denies cough or dyspnea. GASTROINTESTINAL: Denies abdominal pain, nausea, vomiting, or diarrhea. GENITOURINARY: Denies dysuria or hematuria. SKIN: Denies rash or itching. MUSCULOSKELETAL: Denies back pain, joint pain, or myalgia. NEUROLOGIC: Denies headache, numbness, or weakness. PSYCHIATRIC: Denies anxiety or depression. [facility] Past Medical History Medical History Asthma Bipolar 1 disorder Complicated UTI (urinary tract infection) Disc degeneration, lumbar History of anxiety History of peripheral neuropathy Neck pain Obesity Obstructive sleep apnea Sepsis Ureteral stone with hydronephrosis Surgical History Surgical History H/O knee surgery History of hysterectomy History of ureter stent Hx of cystoscopy Kidney stone Family History Family History Father Diabetes mellitus Grandparent Cancer Social History Social History Smoking status: Never smoker Alcohol intake: current Drinks per week: 2 Substance use: never Substance use type: does not use Gender identity (if verbalized by the patient): Female Spiritual care concerns: No Exam Narrative: Exam Narrative: General appearance: Well-developed, well-nourished Skin: Normal color Head: Normocephalic, nontraumatic Eyes: Clear conjunctiva ENT: Oropharynx normal, ears normal, nose normal Neck: Supple, nontender Chest and respiratory: Airway patent, no respiratory distress, no accessory muscle use Heart: Regular rate/rhythm Abdomen: Soft, nontender, no organomegaly, quiet bowel sounds Vascular: Normal peripheral pulses, normal capillary refill. Musculoskeletal: Normal range of motion, nontender back Neurologic: Alert and oriented ?3, [employer] WORK[employer] is normal as tested, no gross motor deficit
[2020-09-07 16:57] LABS: Add Urine Microscopic? YES; Appearance Urine Cloudy (Clear); Bacteria Urine Trace /hpf; Bilirubin Urine Negative (Negative); Blood Urine Negative (Negative); Color Urine Yellow (Yellow); Glucose Urine UA Negative (Negative); Ketones Urine Negative (Negative); Leukocyte Esterase Ur Trace LEU/UL (Negative); Nitrate Urine Negative (Negative); Protein Urine Negative (Negative); Specific Grav Ur 1.016 (1.001-1.035); Squamous Epithelial Cell Urine Many /hpf (Few); Urobilinogen Urine Negative mg/dL (<2.0)
[2020-09-07] MEDS: FLUCONAZOLE 150 MG TABLET PO (17:04)
[2020-09-07] MEDS: cefTRIAXone 250 MG VIAL IM (17:04)
[2020-09-07] MEDS: LIDOCAINE HCL 1% LOCAL INJ 20 ML VIAL (17:05)
== END 2020-09-07 17:40 | disposition home or self-care (01) ==
PROVIDERS: Emergency Provider Emergency Medicine
DX: N89.8 Other specified noninflammatory disorders of vagina (principal); J45.909 Unspecified asthma, uncomplicated; F31.9 Bipolar disorder, unspecified; Z87.440 Personal history of urinary (tract) infections; M51.36 Other intervertebral disc degeneration, lumbar region; F41.9 Anxiety disorder, unspecified; G62.9 Polyneuropathy, unspecified; E66.9 Obesity, unspecified; Z68.28 Body mass index [BMI] 28.0-28.9, adult; G47.33 Obstructive sleep apnea (adult) (pediatric); Z87.442 Personal history of urinary calculi
CPT/HCPCS: 81001; 87070; 87077; 87086; 87088; 87491; 87591; 87808; 96372; 99284; A9270; J0696

== ENCOUNTER 2020-09-08 11:00 | Outpatient (RCR) | payer OTHER, SELFPAY ==
--- NOTE | 2020-08-10 15:13 | PTOPEVAL ---
PHYSICAL THERAPY EVALUATION AND PLAN OF CARE Thank you for referring Lety Doshi to [facility].? The patient is scheduled to be seen for therapy? 2x/week for 4 weeks. Please review, sign, date and return this plan of care RONNELL. I agree with and certify that the following plan of care is medically necessary. Referring Physician Date Evaluation Outpatient Past Medical History Neurological History Hx Neurological Disorders No Significant History Cardiovascular History Hx Cardiac Disorders No Significant History Respiratory History Hx Asthma Yes Gastrointestinal History Hx Gastrointestinal Disorders No Significant History Genitourinary History Hx Kidney Stones Yes Hx Urinary Tract Infection Yes Musculoskeletal History Hx Arthritis Yes Hematological History Hx Hematological Disorders No Significant History Endocrine History Hx Endocrine Disorders No Significant History HEENT History Hx HEENT Disorders No Significant History Integumentary History Hx Skin Disorders No Significant History Reproductive History Hx Reproductive Disorders No Significant History Psychosocial History Hx Psychiatric Disorders No Significant History Pain History History of Any Previous or Ongoing No Significant History Instance of Pain Anesthesia History Hx Anesthesia Reactions No Significant History Other History Hx Other Surgeries Yes: rectal, kidney stent placement Diagnosis neck pain Onset about a year Subjective Information Reports about 8-12months of Query Text:As Reported By Patient/ pain in the neck. She states Family that since she went to a chiropractor about 8 months ago, she has experienced pain and it has not gone away. States that she really feels terrible because of her neck. Self Report Pain Assessment Bilateral Shoulder(s) Reported Pain Level 7 Pain Description Aching,Spasms,Tightness Pain Radiation Right Arm Pain Frequency Chronic,Continuous Other Pain Description cracking Lowest Pain Intensity 5 Greatest Pain Intensity 8 Other Pain Aggravating Factors moving the neck Pain Behaviors Anxious,Guarding Pain Score Pain Score 7: Self Report Interventions Used Interventions Used By Clinicians Exercise,Joint Mobilization Pain Relief Interventions Used By Medication Patient Cervical and Lumbar ROM Cervical ROM Cervical Flexion (0-60) 40 Query Text:Active in Degrees Cervical
--- NOTE | 2020-09-08 11:43 | PTOPEVAL ---
PHYSICAL THERAPY DISCHARGE NOTE Thank you for referring Lety Doshi to [facility].? Please review, sign, date and return this plan of care RONNELL. I agree with and certify that the following plan of care is medically necessary. Referring Physician Date Discharge Diagnosis neck pain Onset about a year Subjective Information Has participated in a month of Query Text:As Reported By Patient/ therapy. States that she Family feels good with regular appointments, but states she feels the same from day one to today. Self Report Pain Assessment Bilateral Shoulder(s) Reported Pain Level 7 Pain Description Aching,Spasms,Tightness Pain Frequency Chronic,Continuous Pain Behaviors Anxious Pain Score Pain Score 7: Self Report Interventions Used Interventions Used By Clinicians Electrical Stimulation, Exercise,Heat,Manual Therapy Techniques Pain Relief Interventions Used By Medication Patient Cervical and Lumbar ROM Cervical ROM Cervical Flexion (0-60) 50 Query Text:Active in Degrees Cervical Extension (0-70) 55 Query Text:Active in Degrees Cervical Rotation Right (0-90) 45 Query Text:Active in Degrees Cervical Rotation Left (0-90) 59 Query Text:Active in Degrees Upper Extremity Range of Motion General Upper Extremity Range of Motion Reason Not Measured WFL/Left,WFL/Right Gross Upper Extremity Range of Motion limited at end range elevation Comments bilaterally; right shoulder IR behind back stiff and limited compared to left - no significant changes Upper Extremity Muscle Strength Testing Scapular/Shoulder Left Shoulder Flexion Strength 4+ Good + Shoulder Adduction Strength 4+ Good + Shoulder Medial Rotation Strength 5 Normal Shoulder Lateral Rotation Strength 5 Normal Right Shoulder Flexion Strength 4- Good - Shoulder Abduction Strength 4- Good - Shoulder Medial Rotation Strength 4 Good Shoulder Lateral Rotation Strength 4 Good Posture Sitting Position Posture Evaluation View Lateral Head/C-Spine Posture Forward Head Thoracic Spine Posture Increased Kyphosis Shoulder Posture (L) Rounded,(R) Rounded,(L) Forward,(R) Forward Palpation Assessment Palpation Palpation tender to palpation right upper trapezius, pec minor, PT Clinical Summary Lety is a 49 yo female
== END 2020-10-24 08:00 | disposition home or self-care (01) ==
LOC: ANHPT 11:00
DX: M54.2 Cervicalgia (principal)
CPT/HCPCS: 97014; 97110; 97140; 97161; G0283

== ENCOUNTER 2020-09-22 09:12 | Outpatient (CLI) | payer OTHER, SELFPAY ==
--- NOTE | 2020-11-02 14:28 | WPDHOMESLEEP ---
Sleep Study - Home Unattended Date of Study: 09/22/20 Ordering Provider: Paula Gaitan MD Interpreting Physician: Paula Gaitan MD Home Sleep Study Type: Apnea Link Air Height: 1.65 m Weight: 81.647 kg Body Mass Index: 29.9 Neck Circumference (inches): 17 Zullinger: 11 Reason for Sleep Study Loud snoring, history of obstructive sleep apnea Sleep History Lety Doshi is a 50 year old female Who indicates she had a history of sleep apnea when she lived in [place]. She has constant loud snoring and it is constantly loud enough that others complain about it. She frequently awakens at night with heartburn, belching or coughing. She rarely awakens from sleep feeling short of breath. She constantly has trouble sleep with a cold. She does not gasp for breath at night. She occasionally has breathing problems at night observed by others. She rarely sweats excessively at night. She really notices her heart pounding or beating irregularly at night. she constantly falls asleep during the day, occasionally involuntarily, never while driving. She does not fall asleep while exerting physical effort. She constantly has loss of muscle tone with strong emotion. she does not have daytime difficulties due to excessive sleepiness. She does not feel paralyzed on waking or falling asleep and does not have vivid dreamlike scenes upon awakening or falling asleep. She is not afraid to go to sleep. She does not have nightmares. She does not remember dreams. She constantly has racing thoughts, constantly feels sad depressed or anxious. She constantly has muscular tension she occasionally notices parts of her body jerking. She constantly kicks at night. She does not have crawling and aching feelings in her legs at night. She constantly has leg pains at night. And morning jaw pain. She does not grind her teeth during sleep. She constantly is bothered by pain during the day, pain at night and wakes up feeling stiff in the morning. She constantly wakes up with sore achy muscles and pain in the neck and spine. She has bowel disturbances, depression and stomach problems. Normal bedtime is 9:00 pm falling asleep quickly, waking 2 or 3 times during the night. When she wakes she will sit up and watch television or use her telephone. She wakes the morning at 6:00 a.m.. She estimates getting 10 hours of sleep at night her weekend schedule is the same. She takes naps in the afternoon or evening. A short nap is not refreshing. She feels better in the afternoon compared to the morning. Habits: Never smoked. She drinks caffeine daily, alcohol on occasion. [facility] Past Medical History Medical History Asthma Bipolar 1 disorder Complicated UTI (urinary tract infection) Disc degeneration, lumbar History of anxiety History of peripheral neuropathy Neck pain Obesity Obstructive sleep apnea Sepsis Ureteral stone with hydronephrosis Surgical History Surgical History H/O knee surgery History of hysterectomy History of ureter stent Hx of cystoscopy Kidney stone Family History Family History Father Diabetes mellitus Grandparent Cancer Social History Social History Smoking status: Never smoker Alcohol intake: current Drinks per week: 2 Substance use: never Substance use type: does not use Gender identity (if verbalized by the patient): Female Spiritual care concerns: No Medications Home Medications Medication Instructions Recorded Confirmed Type trazodone 150 mg PO HS 04/06/20 08/23/20 History bupropion HCl 150 mg PO DAILY 04/07/20 08/23/20 History clobetasol 0.05 % TOPICAL BID 04/07/20 08/23/20 History dicyclomine 20 mg PO TID 04/07/20 08/23/20 History gabapentin 600 mg PO BID 04/07/20 08/23/20
[2020-11-02 14:48] VITALS: BMI 29.9
== END 2020-09-22 09:13 | disposition home or self-care (01) ==
LOC: ANHCSM 09:14
PROVIDERS: Visit Provider Internal Medicine Critical Care Medicine
DX: G47.33 Obstructive sleep apnea (adult) (pediatric) (principal)
CPT/HCPCS: 95806

== ENCOUNTER 2020-11-07 10:27 | Outpatient (CLI) | payer OTHER, SELFPAY ==
[2020-11-07 10:57] LABS: Add Urine Microscopic? NO; Appearance Urine Clear (Clear); Bilirubin Urine Negative (Negative); Blood Urine Negative (Negative); Color Urine Straw (Yellow); Glucose Urine UA Negative (Negative); Ketones Urine Negative (Negative); Leukocyte Esterase Ur Negative LEU/UL (Negative); Nitrate Urine Negative (Negative); Protein Urine Negative (Negative); Specific Grav Ur 1.012 (1.001-1.035); Urobilinogen Urine Negative mg/dL (<2.0)
[2020-11-07 11:06] LABS: Alanine Aminotransferase 29 U/L (4-35); Albumin Level 4.4 g/dL (3.5-5.1); Alkaline Phosphatase 86 U/L (38-126); Anion Gap 3 mmol/L (8-16); Aspartate Amino Transferase 27 U/L (14-36); Bilirubin,Total 0.7 mg/dL (0.2-1.3); Blood Urea Nitrogen 14 mg/dL (7-17); Calcium 9.4 mg/dL (8.4-10.2); Carbon Dioxide 32 mmol/L (22-30); Chloride 107 mmol/L (98-107); Estimated Glomerular Filt Rate 59; Glucose 106 mg/dL (65-105); Sodium 142 mmol/L (137-145)
== END 2020-11-07 10:28 | disposition home or self-care (01) ==
DX: R30.0 Dysuria (principal)
CPT/HCPCS: 36415; 80053; 81003

== ENCOUNTER 2020-11-07 17:43 | Emergency (ER) | payer OTHER, SELFPAY ==
--- NOTE | ~2020-11-07 | XR_ITS ---
EXAMINATION: XR hip RT 2V w AP pelvis DATE: 11/07/2020 19:04 INDICATION: Right pelvic pain. TECHNIQUE: An anteroposterior view of the pelvis and 2 views of right hip were obtained. COMPARISON: CT abdomen and pelvis 04/12/2020 FINDINGS: Bone alignment is normal. No fracture. There is mild osteoarthritis of the hips. There is m ild lumbar spondylosis. IMPRESSION: 1. Mild osteoarthritis of the hips. Reviewed, dictated and finalized at location A. TORIAL SUPERVISOR
[2020-11-07 18:26] VITALS: BP 139/81; PULSE 82; RESP 20; TEMP 36.4; O2SAT 97
--- NOTE | 2020-11-07 18:53 | ED.GENADULT ---
HPI - General Adult General Chief complaint: Extremity Injury, Lower Stated complaint: Right Hip Pain, Fall Time Seen by Provider: 11/07/20 18:33 Source: patient Mode of arrival: ambulatory Limitations: no limitations History of Present Illness HPI narrative: Patient is a 50-year-old female who presents with several days duration of right hip pain patient notes she was lifting an object when she felt several pops in the right posterior leg at the level of the pelvis and hip patient denies any other injury or trauma and is resting comfortably in the room upon arrival presents per private vehicle Related Data Home Medications Medication Instructions Recorded Confirmed trazodone 150 mg PO HS 04/06/20 08/23/20 bupropion HCl 150 mg PO DAILY 04/07/20 08/23/20 clobetasol 0.05 % TOPICAL BID 04/07/20 08/23/20 dicyclomine 20 mg PO TID 04/07/20 08/23/20 gabapentin 600 mg PO BID 04/07/20 08/23/20 hydroxyzine HCl 25 mg PO TID 04/07/20 08/23/20 lactulose 5 ml PO TID 04/07/20 08/23/20 loratadine 10 mg PO DAILY 04/07/20 08/23/20 buspirone mg 05/08/20 08/23/20 clobetasol TOPICAL 05/08/20 08/23/20 loratadine mg 05/08/20 08/23/20 albuterol sulfate 90 mcg/actuation 1 inh INHALATION Q4-6H PRN 07/12/20 08/23/20 breath activated powder inhaler dicyclomine 20 mg tablet 20 mg PO TID 07/12/20 08/23/20 ibuprofen 800 mg tablet 800 mg PO Q6H 07/12/20 08/23/20 tizanidine 4 mg tablet 4 mg PO BID PRN tablet 07/12/20 08/23/20 Allergies Allergy/AdvReac Type Severity Reaction Status Date / Time No Known Allergies Allergy Verified 08/23/20 10:46 Review of Systems Review of Systems: All systems reviewed & are unremarkable except as noted in HPI and below PMFSH Past Medical History Medical History Asthma Bipolar 1 disorder Complicated UTI (urinary tract infection) Disc degeneration, lumbar History of anxiety History of peripheral neuropathy Neck pain Obesity Obstructive sleep apnea Sepsis Ureteral stone with hydronephrosis Surgical History Surgical History H/O knee surgery History of hysterectomy History of ureter stent Hx of cystoscopy Kidney stone Family History Family History Father Diabetes mellitus Grandparent Cancer Social History Social History Smoking status: Never smoker Alcohol intake: current Drinks per week: 2 Substance use: never Substance use type: does not use Gender identity (if verbalized by the patient): Female Spiritual care concerns: No Exam Narrative: Exam Narrative: GENERAL: Well-appearing, well-nourished, and in no acute distress. HEAD: Normocephalic, atraumatic. EYES: PERRLA and EOMI. ENT: Nares clear, no rhinorrhea or epistaxis. Mucous membranes moist. CHEST: Clear to auscultation. No respiratory distress. No wheezes rales or rhonchi HEART: Regular rate and rhythm. No murmur heard. Normal peripheral pulses. EXTREMITIES: Normal range of motion. No edema. Patient with right hip tenderness along the posterior aspect of the right thigh SKIN: Warm, dry, no rash. NEURO: No focal deficits. Alert and oriented x3. Neurovascularly intact. Capillary refill less than 2 seconds PSYCH: Normal mood and affect. Course Vital Signs Vital signs: Vital Signs Temperature 97.5 F L 11/07/20 18:26 Pulse Rate 82 11/07/20 18:26 Respiratory Rate 20 11/07/20 18:26 Blood Pressure 139/81 11/07/20 18:26 Pulse Oximetry 97 11/07/20 18:26 Temperature 97.5 F L 11/07/20 18:26 Pulse Rate 82 11/07/20 18:26 Respiratory Rate 20 11/07/20 18:26 Blood Pressure 139/81 11/07/20 18:26 Pulse Oximetry 97 11/07/20 18:26 Medical Decision Making MDM Narrative Medical decision making narrative: Patients injury or pain is consistent with musculoskelet
[2020-11-07] MEDS: KETOROLAC (*BKC) 60 MG/2 ML VIAL IM (19:07)
[2020-11-07] MEDS: diazePAM (*CRX) 5 MG TABLET PO (19:13)
== END 2020-11-07 20:00 | disposition home or self-care (01) ==
PROVIDERS: Emergency Provider Emergency Medicine
DX: M25.551 Pain in right hip (principal); M79.651 Pain in right thigh; Z87.442 Personal history of urinary calculi; M16.0 Bilateral primary osteoarthritis of hip; J45.909 Unspecified asthma, uncomplicated; G62.9 Polyneuropathy, unspecified; G47.33 Obstructive sleep apnea (adult) (pediatric); Z87.440 Personal history of urinary (tract) infections; F41.9 Anxiety disorder, unspecified; F31.9 Bipolar disorder, unspecified
CPT/HCPCS: 36415; 73502; 80053; 81003; 96372; 99283; A9270; J1885

== ENCOUNTER 2020-11-17 19:35 | Emergency (ER) | payer OTHER, SELFPAY ==
--- NOTE | ~2020-11-17 | XR_ITS ---
EXAMINATION: XR chest 1V portable INDICATION: Shortness of breath TECHNIQUE: Portable AP chest at 2140 hours COMPARISON: None available FINDINGS: There are minimal airspace opacities of the right lung base. No pleural effusion or pneumot horax is identified. The cardiomediastinal silhouette is normal. IMPRESSION: 1. Minimal right basilar airspace opacity, consistent with atelectasis versus pneumonia. Reviewed, dictated and finalized at location A. CE AIDE IMPRESSION: 1. Minimal right basilar airspace opacity, consistent with atelectasis versus p neumonia.
[2020-11-17 19:41] VITALS: BP 147/97; PULSE 89; RESP 14; TEMP 36.6; O2SAT 100
[2020-11-17 20:59] VITALS: BP 120/84; PULSE 71; RESP 16; O2SAT 97
--- NOTE | 2020-11-17 21:34 | ED.ALLEREA ---
HPI - Allergic Reaction General Chief complaint: Allergic Reaction Stated complaint: allergic reaction Time Seen by Provider: 11/17/20 20:58 Source: patient Mode of arrival: ambulatory Limitations: no limitations History of Present Illness HPI narrative: This is a 50 year old female who presents for evaluation of facial itching and swelling. She states she woke up this morning with facial swelling and itching. She has been taking benadryl throughout the day but she continues to have itching. She denies any new exposures and NANDINI inhibitors. She last took benadryl around 3 pm today. She reports her eyes are itchy and watery. She denies tongue or throat swelling or itching. She states she occasionally feels like she may have some trouble breathing. She denies chest pain, cough or fever. She denies having a rash. Related Data Home Medications Medication Instructions Recorded Confirmed trazodone 150 mg PO HS 04/06/20 08/23/20 bupropion HCl 150 mg PO DAILY 04/07/20 08/23/20 clobetasol 0.05 % TOPICAL BID 04/07/20 08/23/20 dicyclomine 20 mg PO TID 04/07/20 08/23/20 gabapentin 600 mg PO BID 04/07/20 08/23/20 hydroxyzine HCl 25 mg PO TID 04/07/20 08/23/20 lactulose 5 ml PO TID 04/07/20 08/23/20 loratadine 10 mg PO DAILY 04/07/20 08/23/20 buspirone mg 05/08/20 08/23/20 clobetasol TOPICAL 05/08/20 08/23/20 loratadine mg 05/08/20 08/23/20 albuterol sulfate 90 mcg/actuation 1 inh INHALATION Q4-6H PRN 07/12/20 08/23/20 breath activated powder inhaler dicyclomine 20 mg tablet 20 mg PO TID 07/12/20 08/23/20 ibuprofen 800 mg tablet 800 mg PO Q6H 07/12/20 08/23/20 tizanidine 4 mg tablet 4 mg PO BID PRN tablet 07/12/20 08/23/20 Allergies Allergy/AdvReac Type Severity Reaction Status Date / Time No Known Allergies Allergy Verified 08/23/20 10:46 Review of Systems Review of Systems: All systems reviewed & are unremarkable except as noted in HPI and below PMFSH Past Medical History Medical History Asthma Bipolar 1 disorder Complicated UTI (urinary tract infection) Disc degeneration, lumbar History of anxiety History of peripheral neuropathy Neck pain Obesity Obstructive sleep apnea Sepsis Ureteral stone with hydronephrosis Surgical History Surgical History H/O knee surgery History of hysterectomy History of ureter stent Hx of cystoscopy Kidney stone Family History Family History Father Diabetes mellitus Grandparent Cancer Social History Social History Smoking status: Never smoker Alcohol intake: current Drinks per week: 2 Substance use: never Substance use type: does not use Gender identity (if verbalized by the patient): Female Spiritual care concerns: No Exam Const: General: no acute distress and alert Nutritional Appearance: obese Orientation/consciousness: patient oriented x3 HENMT: Head: normocephalic and atraumatic Ears: TM's normal bilaterally and EAC's normal Face and sinus: face symmetric and edema (possible bilateral periorbital edema) Mouth: Yes Normal oral and palatal mucosa present, Yes lip normal, Yes tongue normal, Yes oropharynx normal and Yes moist mucous membranes Throat: posterior oropharynx normal, tonsils normal and uvula midline Eyes: Conjunctivae: conjunctivae normal Pupils: Equal, round and reactive pupils present EOM: EOMs intact bilaterally Chest: Chest palpation & inspection: normal inspection of the chest Resp: Effort & Inspection: normal respiratory effort and no retractions Auscultation: clear to auscultation bilaterally and no wheezes Cardio: Rate: regular rate Rhythm: regular rhythm Heart sounds: no murmurs Skin: General skin exam: normal color Rashes: no rashes Neuro: General: patient oriented x3
[2020-11-17] MEDS: diphenhydrAMINE HCl INJ 50 MG/ML VIAL IV PUSH (21:58)
[2020-11-17] MEDS: methylPREDNISolone SOD SUCC 125 MG VIAL IV PUSH (21:58)
[2020-11-17 22:43] LABS: Basophils Absolute Auto 0.1 K/mm3 (0.0-0.1); Basophils Percent Auto 0.6 % (0.2-1.2); Eosinophils Absolute Auto 0.3 K/mm3 (0-0.3); Eosinophils Percent Auto 3.6 % (0-4.4); Hematocrit 39.9 % (37.0-47.0); Hemoglobin 13.4 g/dL (12.0-15.0); Immature Granulocyte Absolute 0.02 K/mm3 (0.00-0.031); Immature Granulocyte Percent A 0.2 % (0-0.5); Lymphocytes Absolute Auto 4.57 K/mm3 (0.9-3.2); Lymphocytes Percent Auto 48.6 % (18.3-44.2); Mean Corpuscular HGB Conc 33.6 g/dl (32-36); Mean Corpuscular Hemoglobin 30.5 pg (26-34); Mean Corpuscular Volume 90.9 fl (80-100); Mean Platelet Volume 9.3 fl (7.4-10.4); Monocytes Absolute Auto 0.5 K/mm3 (0.1-0.6); Monocytes Percent Auto 5.7 % (2.6-8.5); Neutrophils Absolute Auto 3.9 K/mm3 (1.3-6.7); Neutrophils Percent Auto 41.3 % (45.5-73.1); Platelet Count Result 299 k/mm3 (150-375); Red Blood Count 4.39 M/mm3 (4.2-5.4); Red Cell Distribution Width 13.1 % (11.5-14.5); White Blood Count 9.4 K/mm3 (4.5-10.0)
[2020-11-17 22:55] LABS: Alanine Aminotransferase 17 U/L (4-35); Albumin Level 3.7 g/dL (3.5-5.1); Alkaline Phosphatase 83 U/L (38-126); Anion Gap 2 mmol/L (8-16); Aspartate Amino Transferase 21 U/L (14-36); Bilirubin,Total 0.3 mg/dL (0.2-1.3); Blood Urea Nitrogen 14 mg/dL (7-17); Calcium 8.8 mg/dL (8.4-10.2); Carbon Dioxide 28 mmol/L (22-30); Chloride 110 mmol/L (98-107); Estimated CRCL calculation 65 ml/min; Estimated Glomerular Filt Rate 59; Glucose 101 mg/dL (65-105); Potassium 3.8 mmol/L (3.4-5.0); Sodium 140 mmol/L (137-145)
== END 2020-11-17 23:20 | disposition home or self-care (01) ==
PROVIDERS: Emergency Provider General Practice
DX: T78.40XA Allergy, unspecified, initial encounter (principal); R22.0 Localized swelling, mass and lump, head; J45.909 Unspecified asthma, uncomplicated; F41.9 Anxiety disorder, unspecified; F31.9 Bipolar disorder, unspecified; G62.9 Polyneuropathy, unspecified; G47.33 Obstructive sleep apnea (adult) (pediatric); E66.9 Obesity, unspecified; Z68.31 Body mass index [BMI] 31.0-31.9, adult; R91.8 Other nonspecific abnormal finding of lung field
CPT/HCPCS: 36415; 71045; 80053; 85025; 96374; 96375; 99284; J1200; J2930

== ENCOUNTER 2021-01-22 21:36 | Emergency (ER) | payer OTHER, SELFPAY ==
[2021-01-22 21:48] VITALS: BP 139/88; PULSE 81; RESP 16; TEMP 36.6; O2SAT 98
[2021-01-22 21:53] VITALS: BP 139/88; PULSE 81; RESP 16; TEMP 36.6; O2SAT 98
--- NOTE | 2021-01-22 22:51 | ED.SKABFB ---
HPI - Skin/Abscess/Foreign Bdy General Chief complaint: Skin/Abscess/Foreign Body Stated complaint: swelling and pain where she had a tick 2 weeks ago Time Seen by Provider: 01/22/21 22:12 Source: patient and family Mode of arrival: ambulatory Limitations: no limitations and clinical condition History of Present Illness HPI narrative: Patient is 50 years old white female presents with a painful lump at the back of her head started few days ago. Patient reports having a tICK at that area 2 weeks ago and was able to pull it by her fingernails. she could not pull the whole tick and part of it still under her skin. Patient denies any fever, chills, nausea, vomiting, skin rash. Related Data Home Medications Medication Instructions Recorded Confirmed trazodone 150 mg PO HS 04/06/20 08/23/20 bupropion HCl 150 mg PO DAILY 04/07/20 08/23/20 clobetasol 0.05 % TOPICAL BID 04/07/20 08/23/20 dicyclomine 20 mg PO TID 04/07/20 08/23/20 gabapentin 600 mg PO BID 04/07/20 08/23/20 hydroxyzine HCl 25 mg PO TID 04/07/20 08/23/20 lactulose 5 ml PO TID 04/07/20 08/23/20 loratadine 10 mg PO DAILY 04/07/20 08/23/20 buspirone mg 05/08/20 08/23/20 clobetasol TOPICAL 05/08/20 08/23/20 loratadine mg 05/08/20 08/23/20 albuterol sulfate 90 mcg/actuation 1 inh INHALATION Q4-6H PRN 07/12/20 08/23/20 breath activated powder inhaler dicyclomine 20 mg tablet 20 mg PO TID 07/12/20 08/23/20 ibuprofen 800 mg tablet 800 mg PO Q6H 07/12/20 08/23/20 tizanidine 4 mg tablet 4 mg PO BID PRN tablet 07/12/20 08/23/20 Allergies Allergy/AdvReac Type Severity Reaction Status Date / Time lactase [From Dairy Aid] Allergy Nausea and Verified 01/22/21 21:53 Vomiting mushroom Allergy Nausea and Verified 01/22/21 21:53 Vomiting red dye Allergy Nausea and Verified 01/22/21 21:53 Vomiting Review of Systems Review of Systems: Narrative: CONSTITUTIONAL: Denies fever, chills, or sweats. EYES: Denies visual changes, redness, or discharge. ENT: Denies rhinorrhea, congestion, sore throat, or otalgia. CARDIOVASCULAR: Denies chest pain, palpitations, or edema. RESPIRATORY: Denies cough or dyspnea. GASTROINTESTINAL: Denies abdominal pain, nausea, vomiting, or diarrhea. GENITOURINARY: Denies dysuria or hematuria. SKIN: Denies rash or itching. MUSCULOSKELETAL: Denies back pain, joint pain, or myalgia. NEUROLOGIC: Denies headache, numbness, or weakness. PSYCHIATRIC: Denies anxiety or depression. [facility] Past Medical History Medical History Asthma Bipolar 1 disorder Complicated UTI (urinary tract infection) Disc degeneration, lumbar History of anxiety History of peripheral neuropathy Neck pain Obesity Obstructive sleep apnea Sepsis Ureteral stone with hydronephrosis Surgical History Surgical History H/O knee surgery History of hysterectomy History of ureter stent Hx of cystoscopy Kidney stone Family History Family History Father Diabetes mellitus Grandparent Cancer Social History Social History Smoking status: Never smoker Alcohol intake: current Drinks per week: 2 Substance use: never Substance use type: does not use Gender identity (if verbalized by the patient): Female Spiritual care concerns: No Exam Narrative: Exam Narrative: General appearance: Well-developed, well-nourished, agitated, belligerent and offensive Skin: Normal color Head: Normocephalic, nontraumatic, right occipital area at the hairline patient had 3 x 2 mm brown scab on top of erythematous lump, tender to touch. No discharge. Neck: Supple, nontender Chest and respiratory: Airway patent, no respiratory distress, no accessory muscle use Heart: Regular rate/rhythm Neurologic: Alert and oriented ?3,
[2021-01-22 23:23] VITALS: BP 127/75; PULSE 75; RESP 18; O2SAT 99
== END 2021-01-22 23:28 | disposition home or self-care (01) ==
PROVIDERS: Emergency Provider Emergency Medicine
DX: L08.9 Local infection of the skin and subcutaneous tissue, unspecified (principal); B96.89 Other specified bacterial agents as the cause of diseases classified elsewhere; S00.06XA Insect bite (nonvenomous) of scalp, initial encounter; J45.909 Unspecified asthma, uncomplicated; F31.9 Bipolar disorder, unspecified; Z87.440 Personal history of urinary (tract) infections; F41.9 Anxiety disorder, unspecified; G47.33 Obstructive sleep apnea (adult) (pediatric); G62.9 Polyneuropathy, unspecified; Z87.442 Personal history of urinary calculi; W57.XXXA Bitten or stung by nonvenomous insect and other nonvenomous arthropods, initial encounter
CPT/HCPCS: 10061; 99283

== ENCOUNTER 2021-02-08 11:28 | Emergency (ER) | payer OTHER, SELFPAY ==
[2021-02-08 11:37] VITALS: BP 110/75; PULSE 68; RESP 18; TEMP 36.2; O2SAT 100
--- NOTE | 2021-02-08 11:54 | ED.GENADULT ---
HPI - General Adult General Chief complaint: Urogenital-Female Stated complaint: lower back pain Source: patient Mode of arrival: ambulatory Limitations: no limitations History of Present Illness HPI narrative: 50 y/o female. PMH includes: Bipolar I, RADHA, PN, DDD, Chronic Lumbago, Obesity, MARK, Frequent UTI, Nephrolithiasis. Presents to [facility] today with acute complaints of a sore on her face , as well as low back pain and urinary urgency for the past 48 hours. Client tells me that she sleeps with a CPAP @ HS, and she had a spot on her face that was itching. She notes over the past 48 hours, that the area has now become larger and more irritated after 'picking at it'. No discharge. No additional areas of integumentary involvement. In addition, client states to have had increased urinary urgency, but feels like she is not peeing a lot when voiding. She reports frequent UTI. No fever. No abdominal pain, N/V. No vaginal discharge. She does note low back pain, across the small of her back, and worse with activity such as bending and turning . She denies falls or trauma. Pain is described as sharp , intermittent, and radiating down posterior buttock and RT thigh. No Flank pain. No hematuria. She is without additional acute complaints of illness upon exam. Related Data Home Medications Medication Instructions Recorded Confirmed betamethasone, augmented 1 applic TOPICAL DAILY 02/08/21 02/08/21 clindamycin HCl 600 mg PO BID 02/08/21 02/08/21 dicyclomine 20 mg PO TID PRN 02/08/21 02/08/21 gabapentin 800 mg PO TID 02/08/21 02/08/21 Allergies Allergy/AdvReac Type Severity Reaction Status Date / Time lactase [From Dairy Aid] Allergy Nausea and Verified 02/08/21 11:57 Vomiting mushroom Allergy Nausea and Verified 02/08/21 11:57 Vomiting red dye Allergy Nausea and Verified 02/08/21 11:57 Vomiting Review of Systems Review of Systems: Narrative: CONSTITUTIONAL: Denies fever, chills, sweats. EYES: Denies visual changes, redness, discharge. ENT: Denies rhinorrhea, congestion, sore throat, otalgia. CARDIOVASCULAR: Denies chest pain, palpitations, edema. RESPIRATORY: Denies dyspnea, wheezing, cough GASTROINTESTINAL: Denies abdominal pain, nausea, vomiting, diarrhea. GENITOURINARY: Urinary frequency and dribbling. Denies dysuria, hematuria, abnormal discharge SKIN: Pruritic spot to RT cheek. MUSCULOSKELETAL: Low back pain. No additional joint pain, or myalgia. NEUROLOGIC: Denies numbness, or focal weakness. PSYCHIATRIC: Denies anxiety or depression. All systems reviewed & are unremarkable except as noted in HPI and below PMFSH Past Medical History Medical History Asthma Bipolar 1 disorder Complicated UTI (urinary tract infection) Disc degeneration, lumbar History of anxiety History of peripheral neuropathy Neck pain Obesity Obstructive sleep apnea Sepsis Ureteral stone with hydronephrosis Surgical History Surgical History H/O knee surgery History of hysterectomy History of ureter stent Hx of cystoscopy Kidney stone Family History Family History Father Diabetes mellitus Grandparent Cancer Social History Social History Smoking status: Never smoker Alcohol intake: current Drinks per week: 2 Substance use: never Substance use type: does not use Gender identity (if verbalized by the patient): Female Spiritual care concerns: No Exam Narrative: Exam Narrative: GENERAL: This is a well-nourished, obese, well-developed patient, in no apparent distress. HEAD: normocephalic, atraumatic. EYES: PERRL. Sclera clear/white. Vision is grossly intact. EARS: External ears normal, auditory canals clear and without drainage, TMs normal without perf
[2021-02-08 11:57] VITALS: BP 110/75; PULSE 68; RESP 18; TEMP 36.2; O2SAT 100
== END 2021-02-08 12:30 | disposition home or self-care (01) ==
PROVIDERS: Emergency Provider Nurse Practitioner Adult Health
DX: N39.0 Urinary tract infection, site not specified (principal); M54.41 Lumbago with sciatica, right side; L03.211 Cellulitis of face; J45.909 Unspecified asthma, uncomplicated; G47.33 Obstructive sleep apnea (adult) (pediatric); M51.36 Other intervertebral disc degeneration, lumbar region; G62.9 Polyneuropathy, unspecified; E66.9 Obesity, unspecified
CPT/HCPCS: 81003; 87086; 99213; G0463

== ENCOUNTER 2021-05-09 19:58 | Emergency (ER) | payer OTHER, SELFPAY ==
--- NOTE | ~2021-05-09 | CT_ITS ---
EXAMINATION: CT abdomen pelvis wo con EXAM DATE: 05/09/2021 23:36 INDICATION: Left flank pain. Nausea vomiting, fever. TECHNIQUE: Spiral CT of the abdomen and pelvis was performed without contrast. Axial, coronal and sag ittal images were reviewed. The dose-length product (DLP) for this examination was 760.64 mGy-cm. T he exposure was tailored according to patient size (auto mA exposure control), and iterative reconstr uction (ASIR) was used as additional dose reduction technique. Comparison is made to prior examinatio n from 07/13/2020. FINDINGS: There is 2.5 mm right inferior calyceal stone. No obstructing ureteral stones. The uterus i s unremarkable. Small focus of bladder gas. No bladder wall thickening. There is hepatic steatosis without suspicious focal lesion identified. Spleen, adrenal glands, pancreas are unremarkable. Gall bladder is unremarkable. No biliary obstruction. There is no retroperitoneal or pelvic lymphadenopa thy. There are no findings to suggest appendicitis. The stomach and small bowel are unremarkable. There is expected amount of colonic stool. No free intraperitoneal gas. The heart is normal in size. T here are no pericardial or pleural effusions. Scattered bibasilar groundglass opacities, appearance consistent with COVID pneumonia. There are no osteoblastic or osteolytic lesions identified. IMPRESSION: 1. Small amount of bibasilar COVID pneumonia. 2. Right nephrolithiasis. 3. Hepatic steatosis. Reviewed, dictated and finalized at location A.
--- NOTE | ~2021-05-09 | XR_ITS ---
XR chest 1V DATE: 05/09/2021 20:44 INDICATION: Covid-positive on 05/05/2021. Fever, shortness of breath, weakness. TECHNIQUE: PA view COMPARISON: 11/17/2020 portable AP chest FINDINGS: Normal heart size. No hilar or mediastinal enlargement. There is loss of the mid to lower left cardiac margin consistent with lingular infiltrate or atelecta sis. The lungs are otherwise clear. No pleural effusion or pulmonary vascular congestion or pneumotho rax. Included skeletal structures are unremarkable. IMPRESSION: Lingular infiltrate or atelectasis Reviewed, dictated and finalized at location A.
[2021-05-09 20:09] VITALS: BP 126/84; PULSE 80; RESP 18; TEMP 38.8; O2SAT 95
--- NOTE | 2021-05-09 20:12 | ECG_ITS ---
Measurements Intervals [place] Rate: 73 P: 67 MS: 145 QRS: 101 QRSD: 106 T: 63 QT: 384 QTc: 425 Interpretive Statements SINUS RHYTHM RIGHT AXIS DEVIATION INCOMPLETE RIGHT BUNDLE BRANCH BLOCK BORDERLINE T WAVE ABNORMALITY- ANTERIOR LEADS BORDERLINE ECG Electronically Signed On 05-10-2021 5:43:49 CDT by Ho Delong D.O.
[2021-05-09 20:47] LABS: Basophils Percent Auto 0.5 % (0.2-1.2); Eosinophils Percent Auto 0.2 % (0-4.4); Hematocrit 43.4 % (37.0-47.0); Hemoglobin 14.3 g/dL (12.0-15.0); Immature Granulocyte Absolute 0.01 K/mm3 (0.00-0.031); Immature Granulocyte Percent A 0.2 % (0-0.5); Lymphocytes Absolute Auto 1.52 K/mm3 (0.9-3.2); Lymphocytes Percent Auto 36.5 % (18.3-44.2); Mean Corpuscular HGB Conc 32.9 g/dl (32-36); Mean Corpuscular Hemoglobin 30.4 pg (26-34); Mean Corpuscular Volume 92.3 fl (80-100); Mean Platelet Volume 9.9 fl (7.4-10.4); Monocytes Absolute Auto 0.2 K/mm3 (0.1-0.6); Monocytes Percent Auto 5.8 % (2.6-8.5); Neutrophils Absolute Auto 2.4 K/mm3 (1.3-6.7); Neutrophils Percent Auto 56.8 % (45.5-73.1); Platelet Count Result 211 k/mm3 (150-375); Red Cell Distribution Width 13.7 % (11.5-14.5); White Blood Count 4.2 K/mm3 (4.5-10.0)
[2021-05-09 21:06] LABS: Anion Gap 8 mmol/L (8-16); Blood Urea Nitrogen 16 mg/dL (7-17); Calcium 8.8 mg/dL (8.4-10.2); Carbon Dioxide 22 mmol/L (22-30); Chloride 110 mmol/L (98-107); Estimated CRCL calculation 70 ml/min; Estimated Glomerular Filt Rate > 60; Glucose 117 mg/dL (65-110); Potassium 3.2 mmol/L (3.4-5.0); Sodium 140 mmol/L (137-145)
[2021-05-09 21:44] VITALS: BP 125/87; PULSE 85; RESP 22; TEMP 38; O2SAT 97
[2021-05-09] MEDS: ACETAMINOPHEN 325 MG TABLET 650 MG PO (22:26)
[2021-05-09] MEDS: POTASSIUM CHLORIDE 20 MEQ TABLET 40 MEQ PO (22:28)
[2021-05-09 22:33] VITALS: O2SAT 100
[2021-05-09 23:21] VITALS: BP 120/87; PULSE 89; RESP 20; O2SAT 100
--- NOTE | 2021-05-09 23:33 | ED.GENADULT ---
HPI - General Adult General Chief complaint: Fever <Silvana López MD - Last Filed: 05/11/21 13:10> Stated complaint: COVID+, fever <Silvana López MD - Last Filed: 05/11/21 13:10> Time Seen by Provider: 05/09/21 21:52 <Silvana López MD - Last Filed: 05/11/21 13:10> Source: patient <Silvana López MD - Last Filed: 05/11/21 13:10> History of Present Illness HPI narrative: Patient is a 50 y/o female complaining of fever since 4 days ago. She states that her fever is up to 102. She took Tylenol, which helps temporarily. She also has some cough. She tested positive for COVID last Saturday (4 days ago). She also has some left side pain. She has not urinated much during last several hours. <Silvana López MD - Last Filed: 05/11/21 13:10> Related Data Home medications: Home Medications Medication Instructions Recorded Confirmed betamethasone, augmented 1 applic TOPICAL DAILY 02/08/21 02/08/21 clindamycin HCl 600 mg PO BID 02/08/21 02/08/21 dicyclomine 20 mg PO TID PRN 02/08/21 02/08/21 gabapentin 800 mg PO TID 02/08/21 02/08/21 <Silvana López MD - Last Filed: 05/11/21 13:10> Allergies/adverse reactions: Allergies Allergy/AdvReac Type Severity Reaction Status Date / Time lactase [From Dairy Aid] Allergy Nausea and Verified 05/09/21 21:46 Vomiting mushroom Allergy Nausea and Verified 05/09/21 21:46 Vomiting red dye Allergy Nausea and Verified 05/09/21 21:46 Vomiting codeine AdvReac Nausea and Verified 05/09/21 21:46 Vomiting <Silvana López MD - Last Filed: 05/11/21 13:10> Review of Systems Constitutional: Constitutional: Denies chills, Reports fever(s), Denies headache(s) and Denies weakness <Silvana López MD - Last Filed: 05/11/21 13:10> Eyes: Eyes: Denies blurry vision <Silvana López MD - Last Filed: 05/11/21 13:10> ENT: Denies headache(s) and Denies neck pain <Silvana López MD - Last Filed: 05/11/21 13:10> Cardiovascular: Cardiovascular: Denies chest pain and Denies dyspnea <Silvana López MD - Last Filed: 05/11/21 13:10> Respiratory: Respiratory: Denies cough and Denies dyspnea <Silvana López MD - Last Filed: 05/11/21 13:10> Gastrointestinal: Gastrointestinal: Denies abdominal pain, Denies diarrhea, Denies nausea and Denies vomiting <Silvana López MD - Last Filed: 05/11/21 13:10> Genitourinary: Genitourinary: Denies hematuria and Denies dysuria <Silvana López MD - Last Filed: 05/11/21 13:10> Musculoskeletal: Musculoskeletal: Reports back pain and Denies neck pain <Silvana López MD - Last Filed: 05/11/21 13:10> Neurologic: Denies headache(s) and Denies weakness <Silvana López MD - Last Filed: 05/11/21 13:10> [facility] Past Medical History Medical History: Medical History (Updated 05/11/21 @ 00:01 by Kellee Perera) Asthma Asthma Bipolar 1 disorder Complicated UTI (urinary tract infection) Disc degeneration, lumbar History of anxiety History of peripheral neuropathy Neck pain Obesity Obstructive sleep apnea Sepsis Ureteral stone with hydronephrosis <Silvana López MD - Last Filed: 05/11/21 13:10> Surgical History Surgical History: Surgical History H/O knee surgery History of hysterectomy History of ureter stent Hx of cystoscopy Kidney stone <Silvana López MD - Last Filed: 05/11/21 13:10> Family History Family History: Family History Father Diabetes mellitus Grandparent Cancer <Silvana López MD - Last Filed: 05/11/21 13:10> Social History Social History: Social History Smoking status: Never smoker Alcohol intake: current Drinks per week: 2 Substance use: never Substance use type: does not use Gender identity (if verbalized by the patient): Female Spiritual care concerns: No <Silvana Turner Ch
[2021-05-10] MEDS: SODIUM CHLORIDE 0.9% IV 1,000 ML 999 ML IV CONT (00:01)
[2021-05-10 00:02] VITALS: BP 120/87; PULSE 81; RESP 19; TEMP 37.2; O2SAT 97
[2021-05-10 02:18] VITALS: BP 144/89; PULSE 79; RESP 15; O2SAT 96
--- NOTE | 2021-05-10 02:20 | PC.NURSE ---
pt complaining of abdominal pain at this time. EDP mayank notified, no new orders at this time.
[2021-05-10] MEDS: HYDROcodone/acetaminophen (*CRX) 5-325 MG TABLET 2 TAB PO (03:01)
[2021-05-10 03:02] LABS: Appearance Urine Clear (Clear); Bilirubin Urine Negative (Negative); Color Urine Yellow (Yellow); Glucose Urine UA Negative (Negative); Ketones Urine 3+ mg/dL (Negative); Leukocyte Esterase Ur Negative LEU/UL (Negative); Nitrate Urine Negative (Negative); Protein Urine 1+ mg/dL (Negative); Specific Grav Ur 1.025 (1.001-1.035); Urobilinogen Urine 0.2 mg/dL (<2.0); pH Urine 5.5 (5.0-9.0)
[2021-05-10 03:26] LABS: Add Urine Microscopic? YES; Blood Urine Trace-Intact (Negative)
[2021-05-10 03:49] VITALS: BP 179/82; PULSE 82; RESP 14; TEMP 37.4; O2SAT 100
--- NOTE | 2021-05-10 03:58 | PC.NURSE ---
pt had dried blood from earlier IV insertion upon discharge, pt distraught saying I can't believe I have all this blood everywhere. pt refused wash cloth/paper towels to clean blood. pt distraught saying no pain medications were given for my belly pain.
[2021-05-10 07:43] LABS: RBC Urine 0-2 /hpf (0-2); Squamous Epithelial Cell Urine Few /hpf (Few)
== END 2021-05-10 03:49 | disposition home or self-care (01) ==
PROVIDERS: Emergency Medicine; Emergency Provider Emergency Medicine
DX: U07.1 COVID-19 (principal); J12.82 Pneumonia due to coronavirus disease 2019; R10.9 Unspecified abdominal pain; J45.909 Unspecified asthma, uncomplicated
CPT/HCPCS: 36415; 51701; 71045; 74176; 80048; 81001; 85025; 93005; 96360; 99284; A9270; J7030

== ENCOUNTER 2021-07-21 11:21 | Emergency (ER) | payer OTHER, SELFPAY ==
[2021-07-21 11:34] VITALS: BP 124/73; PULSE 80; RESP 18; TEMP 36.7; O2SAT 98
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
== END 2021-07-21 12:20 | disposition home or self-care (01) ==
PROVIDERS: Emergency Provider Nurse Practitioner
DX: J02.0 Streptococcal pharyngitis (principal); J45.909 Unspecified asthma, uncomplicated; M51.36 Other intervertebral disc degeneration, lumbar region; G62.9 Polyneuropathy, unspecified; G47.33 Obstructive sleep apnea (adult) (pediatric)
CPT/HCPCS: 87880; 99213; G0463

== ENCOUNTER 2021-07-22 13:12 | Emergency (ER) | payer OTHER, SELFPAY ==
[2021-07-22 13:21] VITALS: BP 141/76; PULSE 84; RESP 16; TEMP 37.1; O2SAT 98
--- NOTE | 2021-07-22 14:00 | ED.SKABFB ---
HPI - Skin/Abscess/Foreign Bdy General Chief complaint: Skin/Abscess/Foreign Body Stated complaint: Rash Time Seen by Provider: 07/22/21 14:00 Source: patient Mode of arrival: ambulatory Limitations: no limitations History of Present Illness HPI narrative: Lety Doshi is a 50 yo female with a rash on her upper body that is now getting into her groin area who was seen here yesterday, states the itching is increased and she cannot tolerate it even though she was given prednisone and Benadryl. She denies any possibility of having exposure to scabies or contact dermatitis. States that the itching has really been most annoying symptom She has not had any new clothes or used products brought into the house Related Data Home Medications Medication Instructions Recorded Confirmed dicyclomine 20 mg PO TID PRN 02/08/21 02/08/21 gabapentin 800 mg PO TID 02/08/21 02/08/21 escitalopram oxalate mg 07/21/21 naproxen [EC-Naproxen] PO 07/21/21 Allergies Allergy/AdvReac Type Severity Reaction Status Date / Time lactase [From Dairy Aid] Allergy Nausea and Verified 07/21/21 11:55 Vomiting mushroom Allergy Nausea and Verified 07/21/21 11:55 Vomiting red dye Allergy Nausea and Verified 07/21/21 11:55 Vomiting codeine AdvReac Nausea and Verified 07/21/21 11:55 Vomiting Review of Systems Review of Systems: CONSTITUTIONAL: Denies fever, chills, sweats. EYES: Denies visual changes, redness, discharge. ENT: Denies rhinorrhea, congestion, sore throat, otalgia. CARDIOVASCULAR: Denies chest pain, palpitations, edema. RESPIRATORY: Denies dyspnea, wheezing, cough GASTROINTESTINAL: Denies abdominal pain, nausea, vomiting, diarrhea. GENITOURINARY: Denies dysuria, hematuria, abnormal discharge SKIN: Rash on arms torso with red papular areas NEUROLOGIC: Denies numbness, or focal weakness. PSYCHIATRIC: Denies anxiety or depression. [facility] Past Medical History Medical History Asthma Asthma Bipolar 1 disorder Complicated UTI (urinary tract infection) Disc degeneration, lumbar History of anxiety History of peripheral neuropathy Neck pain Obesity Obstructive sleep apnea Sepsis Ureteral stone with hydronephrosis Surgical History Surgical History H/O knee surgery History of hysterectomy History of ureter stent Hx of cystoscopy Kidney stone Family History Family History Father Diabetes mellitus Grandparent Cancer Social History Social History Smoking status: Never smoker Alcohol intake: current Drinks per week: 2 Substance use: never Substance use type: does not use Gender identity (if verbalized by the patient): Female Sexual Orientation (if Verbalized by the Patient): Straight or Heterosexual Spiritual care concerns: No Comments At time of signature, I agree with nursing past medical, surgical, social and family history. There is no relevant family history pertinent to the presenting complaint. Exam Narrative: GENERAL: This is a well-nourished, well-developed patient, in moderate distress. HEAD: normocephalic, atraumatic. EYES: Sclera clear/white. Vision is grossly intact. EARS: External ears normal,Hearing grossly intact. NOSE: External nose normal without nasal discharge, nares without redness, no rhinorrhea. THROAT: Mucous membranes moist, direct-current NECK: Neck supple, non-tender CARDIOVASCULAR: Regular rate and rhythm without murmurs, gallops, or rubs. RESPIRATORY: Clear to auscultation. Breath sounds equal bilaterally. No wheezes, rales, or rhonchi. GASTROINTESTINAL: Abdomen soft,, SKIN: warm, intact with red papular rash on palms of hands fingers torso and upper arms none on the legs but is in the genital crease There were no obvious foca
[2021-07-22] MEDS: methylPREDNISolone SOD SUCC 125 MG VIAL 100 MG IM (14:29)
== END 2021-07-22 14:41 | disposition home or self-care (01) ==
PROVIDERS: Emergency Provider Nurse Practitioner
DX: R21 Rash and other nonspecific skin eruption (principal); J45.909 Unspecified asthma, uncomplicated; G47.33 Obstructive sleep apnea (adult) (pediatric); E66.9 Obesity, unspecified; Z68.30 Body mass index [BMI] 30.0-30.9, adult; G62.9 Polyneuropathy, unspecified; M51.36 Other intervertebral disc degeneration, lumbar region
CPT/HCPCS: 96372; 99213; G0463; J2930

== ENCOUNTER 2021-08-24 09:27 | Outpatient (CLI) | payer OTHER, SELFPAY | END 2021-08-24 09:28 | disposition home or self-care (01) | DX: A59.9 Trichomoniasis, unspecified (principal) | CPT/HCPCS: 87661 ==